=== PATIENT | female | born 1945 | race Caucasian/White ===

== ENCOUNTER 2016-06-04 15:03 | Inpatient (IN) | payer MEDICARE, OTHER ==
[~2016-06-04] VITALS: Ht 157.5 cm; Wt 43.1 kg
[~2016-06-04 15:03] MED LIST: 'PARAFON FORTE500 M1 PO; ADVAIR 250/501 EA INH; ASPIRIN81 M1 PO; ATIVAN0.5 MG PO; ATIVAN1 MG PO; BENADRYL25 MG PO; CIPROFLOXACIN500 MG PO; COLACE100 MG PO; D-1000 185 MG-11 TAB PO; DAYPRO600 M1 PO; DELTASONE10 MG PO; HYDROCODONE BIT1 T11 PO; IMDUR SA30 MG PO; IMDUR30 MG PO; IMDUR60 MG PO; LAMICTAL200 MG PO; LEVAQUIN500 M2 PO; LEVAQUIN750 M1 PO; LEVOFLOXACIN500 MG PO; LIPITOR20 MG PO; LISINOPRIL2.5 MG PO; LOPRESSOR50 M1 PO; LOPRESSOR50 MG PO; MIRALAX17 GM PO; NORCO 325 MG-51 TAB PO; OMEPRAZOLE20 M2 PO; OMEPRAZOLE20 MG PO; OXYGEN NAS; PERCOCET 325 MG1 TA2 PO; PERI-COLACE 501 TAB PO; PROAIR HFA0.09 MG/AC INH; SINGULAIR10 M1 PO; SINGULAIR10 MG PO; TRAMADOL HCL50 MG PO; TUSSIN DM MAX118 ML PO; VENTOLIN H0.09 MG/AC INH; VITAMIN D 90 MG1 TAB PO; VITAMIN D1000 IU PO; XANAX0.25 MG PO; Zofran4 MG PO
[2016-06-04 15:09] VITALS: BP 156/76
[2016-06-04 15:48] LABS: BASO % 0.2 % (0.0-1.0); EOS # 0.1 10*3/uL (0.0-0.4); EOS % 0.8 % (1.0-4.0); HEMATOCRIT 39.1 % (37.0-47.0); IG # 0.1 10*3/uL (0.0-0.1); LYMPH # 1.8 10*3/uL (1.3-4.4); MEAN CORPUSCULAR HGB 33.2 pg (27.0-31.0); MEAN CORPUSCULAR HGB CONC 33.2 g/dl (33.0-37.0); MEAN PLATELET VOLUME 9.5 fl (9.6-12.3); MONO # 0.8 10*3/uL (0.1-1.0); MONO % 6.7 % (3.0-9.0); NEUT # 9.8 10*3/uL (2.3-7.9); NEUT % 77.3 % (47.0-73.0); PLATELET COUNT AUTOMATED 330 10*3/uL (130-400); RED BLOOD COUNT 3.91 10*6/uL (4.10-5.10); RED CELL DISTRI WIDTH 12.8 % (0-14.5); WHITE BLOOD COUNT 12.6 10*3/uL (4.8-10.8)
[2016-06-04 16:00] LABS: PROTHROMBIN TIME 10.8 SECONDS (9.0-12.4)
[2016-06-04 16:05] LABS: ALBUMIN 3.1 gm/dl (3.1-4.5); ALKALINE PHOSPHATASE 97 U/L (45-117); BILIRUBIN, TOTAL 0.5 mg/dl (0.2-1.0); BUN 10 mg/dl (7-24); CARBON DIOXIDE 23 mmol/L (21-32); CHLORIDE 104 mmol/L (98-107); CPK 55 U/L (26-192); EST GLOM FILT AFRICAN AMERICAN > 60 ml/min; GLUCOSE 91 mg/dL (65-99); LDH 218 U/L (84-246); MAGNESIUM 2.1 mg/dL (1.5-2.1); POTASSIUM 4.4 mmol/L (3.5-5.1); SGOT/AST 47 IU/L (3-35); SGPT/ALT 25 U/L (12-78); SODIUM 139 mmol/L (136-145); TOTAL PROTEIN 7.2 gm/dL (6.4-8.2)
[2016-06-04 16:06] LABS: CKMB 0.6 ng/ml (0.5-3.6)
[2016-06-04 16:08] LABS: TROPONIN I < 0.015 ng/ml (<0.045)
[2016-06-04 17:55] VITALS: BP 150/50
[2016-06-04 20:00] VITALS: BP 165/66
[2016-06-05] VITALS: BP 142/51
[2016-06-05 06:29] LABS: HEMATOCRIT 36.3 % (37.0-47.0); IG # 0.1 10*3/uL (0.0-0.1); LYMPH # 0.6 10*3/uL (1.3-4.4); LYMPH % 8.6 % (27.0-41.0); MEAN CELL VOLUME 101.4 fl (81.0-99.0); MEAN CORPUSCULAR HGB 33.5 pg (27.0-31.0); MEAN CORPUSCULAR HGB CONC 33.1 g/dl (33.0-37.0); MEAN PLATELET VOLUME 9.3 fl (9.6-12.3); MONO # 0.2 10*3/uL (0.1-1.0); NEUT # 6.4 10*3/uL (2.3-7.9); NEUT % 87.9 % (47.0-73.0); PLATELET COUNT AUTOMATED 300 10*3/uL (130-400); RED BLOOD COUNT 3.58 10*6/uL (4.10-5.10); RED CELL DISTRI WIDTH 12.7 % (0-14.5); WHITE BLOOD COUNT 7.3 10*3/uL (4.8-10.8)
[2016-06-05 06:55] LABS: CHLORIDE 105 mmol/L (98-107); POTASSIUM 4.1 mmol/L (3.5-5.1); SODIUM 139 mmol/L (136-145)
[2016-06-05 07:27] LABS: ALBUMIN 2.9 gm/dl (3.1-4.5); ALKALINE PHOSPHATASE 92 U/L (45-117); BILIRUBIN, TOTAL 0.4 mg/dl (0.2-1.0); BUN 5 mg/dl (7-24); CARBON DIOXIDE 22 mmol/L (21-32); EST GLOM FILT AFRICAN AMERICAN > 60 ml/min; GLUCOSE 135 mg/dL (65-99); MAGNESIUM 2.2 mg/dL (1.5-2.1); PHOSPHOROUS 3.2 mg/dL (2.5-4.9); SGOT/AST 24 IU/L (3-35); SGPT/ALT 20 U/L (12-78); TOTAL PROTEIN 6.8 gm/dL (6.4-8.2)
[2016-06-05 08:00] VITALS: BP 147/71; BP 162/52
[2016-06-05 12:00] VITALS: BP 154/70
[2016-06-05 16:00] VITALS: BP 146/60
[2016-06-05 20:00] VITALS: BP 162/64
[2016-06-06] VITALS: BP 151/59
[2016-06-06 06:34] LABS: BASO % 0.2 % (0.0-1.0); EOS % 0.3 % (1.0-4.0); HEMATOCRIT 33.4 % (37.0-47.0); IG # 0.1 10*3/uL (0.0-0.1); LYMPH # 2.6 10*3/uL (1.3-4.4); LYMPH % 28.1 % (27.0-41.0); MEAN CELL VOLUME 101.8 fl (81.0-99.0); MEAN CORPUSCULAR HGB 33.5 pg (27.0-31.0); MEAN CORPUSCULAR HGB CONC 32.9 g/dl (33.0-37.0); MEAN PLATELET VOLUME 9.3 fl (9.6-12.3); MONO # 0.7 10*3/uL (0.1-1.0); MONO % 7.4 % (3.0-9.0); NEUT # 5.9 10*3/uL (2.3-7.9); NEUT % 62.8 % (47.0-73.0); PLATELET COUNT AUTOMATED 299 10*3/uL (130-400); RED BLOOD COUNT 3.28 10*6/uL (4.10-5.10); RED CELL DISTRI WIDTH 13.1 % (0-14.5); WHITE BLOOD COUNT 9.4 10*3/uL (4.8-10.8)
[2016-06-06 06:58] LABS: BUN 3 mg/dl (7-24); CARBON DIOXIDE 25 mmol/L (21-32); CHLORIDE 111 mmol/L (98-107); EST GLOM FILT AFRICAN AMERICAN > 60 ml/min; GLUCOSE 87 mg/dL (65-99); SODIUM 144 mmol/L (136-145)
[2016-06-06 08:00] VITALS: BP 182/66
[2016-06-06 12:00] VITALS: BP 130/88; BP 148/60
[2016-06-06 16:00] VITALS: BP 130/66
[2016-06-06 20:00] VITALS: BP 155/68
[2016-06-07] VITALS: BP 141/59
[2016-06-07 08:00] VITALS: BP 154/58
[2016-06-07] MEDS ORDERED: LEVAQUIN500 M2 PO (11:16)
== END 2016-06-07 12:30 | disposition home or self-care (01) | DRG 871 ==
LOC: ED 15:03 → 5E 15:37 → EDHOLD 15:37 → 5E 15:54
PROVIDERS: Internal Medicine; Physician Assistant
DX: A41.9 Sepsis, unspecified organism (principal); E43 Unspecified severe protein-calorie malnutrition; M32.9 Systemic lupus erythematosus, unspecified; Z99.81 Dependence on supplemental oxygen; J18.9 Pneumonia, unspecified organism; J44.1 Chronic obstructive pulmonary disease with (acute) exacerbation; Z66 Do not resuscitate; K59.00 Constipation, unspecified; F17.200 Nicotine dependence, unspecified, uncomplicated; I25.10 Atherosclerotic heart disease of native coronary artery without angina pectoris; G40.909 Epilepsy, unspecified, not intractable, without status epilepticus; M81.0 Age-related osteoporosis without current pathological fracture; K22.719 Barrett's esophagus with dysplasia, unspecified; K44.9 Diaphragmatic hernia without obstruction or gangrene; I10 Essential (primary) hypertension; E55.9 Vitamin D deficiency, unspecified; D64.9 Anemia, unspecified; Z71.6 Tobacco abuse counseling; Z86.73 Personal history of transient ischemic attack (TIA), and cerebral infarction without residual deficits; I25.2 Old myocardial infarction; Z90.49 Acquired absence of other specified parts of digestive tract; Z95.5 Presence of coronary angioplasty implant and graft; Z90.710 Acquired absence of both cervix and uterus; Z88.1 Allergy status to other antibiotic agents; Z88.0 Allergy status to penicillin; Z88.8 Allergy status to other drugs, medicaments and biological substances; Z88.2 Allergy status to sulfonamides; Z91.041 Radiographic dye allergy status; Z79.51 Long term (current) use of inhaled steroids; Z79.82 Long term (current) use of aspirin; Z79.899 Other long term (current) drug therapy; Z68.23 Body mass index [BMI] 23.0-23.9, adult

== ENCOUNTER 2016-06-21 17:01 | Inpatient (IN) | payer MEDICARE, OTHER ==
[~2016-06-21] VITALS: Ht 152.4 cm; Wt 44.7 kg
--- NOTE | ~2016-06-21 | PR ---
[place], [place] PROGRESS NOTE NAME: YOGESH REARDON UNIT #: [id number] ROOM: 408 DOCTOR: MATHEUS DIAZ MD BIRTHDATE: [birth year] DOS: 06/24/2016 PULMONARY PROGRESS NOTE SUBJECTIVE: She has been doing better at this time. The patient stated reduction and improvement in respiratory symptoms since admission, mostly. She does not wish to use the steroids, but using antibiotics as ordered. The coughing has been decreased. Shortness of breath, wheezing was resolved significantly. OBJECTIVE: VITAL SIGNS: Shows a normal temperature, respiratory rate of 18, heart rate of 70, blood pressure 162/50. Intake for the patient is 2030, output 2400 mL. Pulse oxygen saturation on room air 95% saturation. HEENT: Examination shows no acute change. NECK: Supple. CARDIOVASCULAR: S1, S2 audible. LUNGS: The patient was noted without any wheezing or crackles at the present time. Breaths are noted mild to moderately decreased bilaterally. ABDOMEN: Soft, nontender. LABORATORY DATA: Blood culture of patient from 06/21/2016 showed no bacterial growth. IMPRESSION: The patient with progressive resolution of acute exacerbation of chronic obstructive pulmonary disease, acute tracheobronchitis with current present plan and management. PLAN OF TREATMENT: The patient could be discharged home on oral ciprofloxacin as that is the only oral antibiotic she can take and listed allergy to multiple other antibiotics classes, which could be used orally as alternative. She does not wish to use the corticosteroid, was asked to resume her previous home medication and outpatient followup was suggested post-discharge. The discharge planning was discussed with the nursing staff for this patient about that. [place], [place] PROGRESS NOTE NAME: YOGESH REARDON UNIT #: [id number] ROOM: 408 DOCTOR: MATHEUS DIAZ MD BIRTHDATE: [birth year] MATHEUS DHILLON MD CM:PNTRANS [id number] MATHEUS AVILA MD 06/24/16 1023 interface
--- NOTE | ~2016-06-21 | PN ---
[place], [place] PROGRESS NOTE NAME: YOGESH REARDON [facility] #: [id number] UNIT #: [id number] ROOM: 408 DOCTOR: MATHEUS DIAZ MD BIRTHDATE: [birth year] DATE: 06/23/16 SUBJECTIVE: Noted for. She has been still noticing significant coughing, wheezing. The patient has been ordered Solu-Medrol to be used yesterday, but the patient refused to use the Solu-Medrol. She has not been noted any symptoms of chest pain or any abdominal pain. The cough remains moderate to severe and nonproductive. OBJECTIVE: VITAL SIGNS: For the patient which has been recorded showed the temperature of the patient noted as normal. The respiratory rate of the patient recorded as 18. The heart rate of 78. The blood pressure noted 108/63. Pulse oxygen saturation of the patient recorded as 94% on room air. HEENT: Shows head was atraumatic. Eyes nonicterus. NECK: Supple. CARDIOVASCULAR SYSTEM: S1, S2 audible. LUNGS: The patient was noted without any wheezing or crackles at the present time. ABDOMEN: Soft, nontender. LABORATORY DATA: Blood cultures which were taken 16th of this month show no bacterial growth cultures from the Emergency Room. Phosphorus level was noted 2.9 this morning. CBC patient of 06/23/2016, hemoglobin 10.1, hematocrit 31.3, WBC count were normal, platelet count was normal. The patient has a V/Q scan, which was ordered by the primary care attending yesterday the patient was described low probability of pulmonary embolism. IMPRESSION: The patient who has been currently noted with acute exacerbation of chronic obstructive pulmonary disease with acute tracheobronchitis with persistent wheezing and coughing. The patient refused to use the BiPAP claiming that she has a side effect from the BiPAP use. The plan of management. Continue the patient's current therapy, plan of care as in progress. Usual care. Supportive care, other therapy, plan of management as well. Usual treatments. Further treatment changes will be done based on the progression of the illness. At this time, the BiPAP for the patient to be continued. MATHEUS DIAZ MD CM:PNTRANS [phone] MATHEUS AVILA MD 06/25/16 1804 LEATHA FENG.R
--- NOTE | ~2016-06-21 | CON ---
[place], [place] REPORT OF CONSULTATION NAME: YOGESH REARDON [facility] #: [id number] UNIT #: [id number] ROOM: 408 DOCTOR: JACQUIE AVILA MDMATHEUS BIRTHDATE: [birth year] DOS: 06/22/2016 PULMONARY CONSULTATION, EVALUATION AND MANAGEMENT CONSULTATION REQUESTED BY: Hospitalist services. REASON FOR CONSULTATION: Assess the patient for acute exacerbation of COPD. HISTORY OF PRESENT ILLNESS: A 71-year-old white female who has been known to me from the past. The patient has been admitted under the hospitalist services patient for the medical management ongoing acute respiratory complaints. The patient started with having increased symptoms of shortness of breath for patient and the pain which were described across the chest wall from this morning. The pain has been noted gradually worsening. The latter patient described to be sternum area radiating to the back. The patient does complain of some headache as well and nausea. The coughing has been noted as well with sputum expectoration noted thick and purulent. The patient does have some wheezing as well. She denies symptoms of hemoptysis. The patient has been currently admitted to the hospital the patient for further medical management. REVIEW OF SYSTEMS: CONSTITUTIONAL: Fatigue and tiredness described as symptoms of fever or chills. EYES: Denies any burning, redness, or tenderness. EARS, NOSE, THROAT: No sore throat, hoarseness, otalgia, postnasal drainage or epistaxis. CARDIOVASCULAR SYSTEM: Denies anginal pain, edema or pain of the lower extremities. GASTROINTESTINAL: Denies dysphagia, nausea, vomiting, diarrhea, abdominal pain, hematemesis, melena, or hematochezia. SKIN: No lesions or rashes. GENITOURINARY: . CENTRAL NERVOUS SYSTEM: Denies dizziness, headache or diplopia. Remaining systems were reviewed with the patient, they were noted all negative. PAST MEDICAL HISTORY: The patient has been admitted in this hospital previously as well under care of the hospitalist services for this patient. The patient has been treated in this hospital from date of 06/04/2016-06/07/2016 and managed for acute exacerbation of COPD and then discharged home. PAST MEDICAL HISTORY: 1. Centrilobular emphysema. 2. Coronary artery disease. 3. Past GI bleeding. 4. History of hiatal hernia. 5. Past CVA with resolution of hemiparesis, no remaining focal deficit. 6. Essential hypertension. 7. Seizure disorder. 8. Faulkner's esophagus. 9. Anemia of chronic disease. [place], [place] REPORT OF CONSULTATION NAME: YOGESH REARDON UNIT #: [id number] ROOM: [facility] DOCTOR: MATHEUS DIAZ MD BIRTHDATE: [birth year] PAST SURGICAL HISTORY: 1. Cardiac catheterization. 2. Appendectomy. 3. Hysterectomy. 4. Therapeutic bronchoscopy. 5. EGD. SOCIAL HISTORY: The patient lives at home. Denies history of alcohol, illicit drug use, tobacco use for the patient noted. Since teenager a pack of cigarettes per day, stating that she has not been smoking any cigarettes at this time. She worked for several years in [employer] the patient exposure to the dust. FAMILY HISTORY: The patient was noted as both parents have been . They have been known with history of congestive heart failure and aneurysm. DRUG ALLERGIES: SHE HAS BEEN NOTED MANY ALLERGY. THE PATIENT WAS LISTED THAT INCLUDES PENICILLIN, CODEINE, IODINE, PHENYTOIN, TEGRETOL, IBUPROFEN, NAPROXEN, DOXYCYCLINE, BACTRIM, CIPRO, FLAGYL, LODINE, BIAXIN, ZITHROMAX, ARTHROTEC, PREVACID, PHENERGAN, REGLAN, OMNICEF AND AVELOX. MEDICATIONS: The current administered medications were noted use of Lovenox for DVT prophylaxis, DuoNeb for this patient q.6 hours, IV vancomycin, cefepime and morphine. PHYSICAL EXAMINATION: GENERAL: This is a 71-year-old female who has been noted currently awake and alert without any distress. Height was 5 feet, weight of 98 pounds. The patient's BMI of 19.2. VITAL SIGNS: For the patient which has been recorded shows temperature noted at 100 degrees Fahrenheit on admission, currently noted normal temperature, respiratory 15-16, heart rate of 96-88, blood pressure 126/42-107/53. Pulse oxygen saturation on 2 L nasal cannula noted 95% saturation. HEENT: Head was atraumatic. Eyes nonicterus. NECK: Supple. CARDIOVASCULAR SYSTEM: S1, S2 audible. LUNGS: Noted without any wheezing or crackles at the present time. Breaths are noted mildly decreased bilaterally. ABDOMEN: Soft, nontender. Bowel sounds present. EXTREMITIES: Shows no edema, clubbing or cyanosis. CENTRAL NERVOUS SYSTEM: Cranial nerves 2-12 intact. No focal deficits. SKIN: No lesions or rashes. MUSCULOSKELETAL: No acute deformities. LABORATORY DATA: CBC that was done on 06/21/2016 WBC count 12.6, hemoglobin 10.4, hematocrit 32.5, platelet count 269,000. Admission in the Emergency Room lactic acid was 1.0. The CMP of the patient of 06/21/2016 was noted as glucose 108, BUN and creatinine were normal, remaining electrolytes were normal. Arterial blood gas on 5 L nasal cannula for the patient first was venous blood [place], [place] REPORT OF CONSULTATION NAME: YOGESH REARDON UNIT #: [id number] ROOM: [facility] DOCTOR: MATHEUS DIAZ MD BIRTHDATE: [birth year] gas. Second arterial blood gas 4 liters, pH of 7.44, pCO2 of 33, pO2 of 63.1. CBC for the patient repeated again which was rather repeated this morning, WBC count 12.3, hemoglobin 9.3, hematocrit 29.3, platelet count 247,000. CMP for this morning noted normal BUN and creatinine. Chest x-ray 1 view, the patient showed change in hyperinflation, COPD without any acute pulmonary infiltration. IMPRESSION: 1. The patient who has been currently admitted to the hospital noted with acute recurrent exacerbation of chronic obstructive pulmonary disease with acute tracheobronchitis for the patient at the present time. 2. Multiple allergies the patient noted to several different classes of antibiotics. 3. Previous history of nicotine dependence as well. PLAN OF TREATMENT: Ordered sputum for Gram stain and culture. Continue current antibiotics intravenously for the patient as well. Monitor for any adverse reactions for any of these antibiotics. The bronchodilator patient will be given every 4 hours. She will be ordered Solu-Medrol for this patient as well. Sputum for Gram stain and culture has been ordered. Further treatment plan of management patient will be done for the patient based on the progression of the illness. MATHEUS DHILLON MD CM:CONSTR:REPORT OF CONSULTATION 1033 06/23/16 0140 interface
[2016-06-21 17:13] VITALS: BP 158/69
[2016-06-21 17:29] LABS: BASO % 0.2 % (0.0-1.0); EOS % 0.1 % (1.0-4.0); HEMATOCRIT 32.5 % (37.0-47.0); HEMOGLOBIN 10.4 g/dl (12.0-16.0); IG # 0.1 10*3/uL (0.0-0.1); LYMPH # 0.7 10*3/uL (1.3-4.4); LYMPH % 5.7 % (27.0-41.0); MEAN CELL VOLUME 103.2 fl (81.0-99.0); MEAN PLATELET VOLUME 9.8 fl (9.6-12.3); MONO # 0.7 10*3/uL (0.1-1.0); MONO % 5.5 % (3.0-9.0); NEUT # 11.1 10*3/uL (2.3-7.9); NEUT % 87.8 % (47.0-73.0); PLATELET COUNT AUTOMATED 269 10*3/uL (130-400); RED BLOOD COUNT 3.15 10*6/uL (4.10-5.10); RED CELL DISTRI WIDTH 13.3 % (0-14.5); WHITE BLOOD COUNT 12.6 10*3/uL (4.8-10.8)
[2016-06-21 17:38] LABS: PROTHROMBIN TIME 10.1 SECONDS (9.0-12.4)
[2016-06-21 17:44] LABS: ALBUMIN 3.2 gm/dl (3.1-4.5); ALKALINE PHOSPHATASE 81 U/L (45-117); BILIRUBIN, TOTAL 0.4 mg/dl (0.2-1.0); BUN 13 mg/dl (7-24); CARBON DIOXIDE 21 mmol/L (21-32); CHLORIDE 104 mmol/L (98-107); EST GLOM FILT AFRICAN AMERICAN > 60 ml/min; GLUCOSE 108 mg/dL (65-99); POTASSIUM 4.1 mmol/L (3.5-5.1); SGOT/AST 21 IU/L (3-35); SGPT/ALT 10 U/L (12-78); SODIUM 138 mmol/L (136-145)
[2016-06-21 17:49] LABS: ABG BASE EXCESS -0.2 mmol/L (-2.0-2.0); ABG CO2 CONTENT 23.7 mmol/L (23-27); ABG HCO3 22.7 mmol/l (22-26); ARTERIAL BLOOD GAS PH 7.446 (7.35-7.45)
[2016-06-21 17:49] LABS: TROPONIN I < 0.015 ng/ml (<0.045)
[2016-06-21 18:10] LABS: ABG BASE EXCESS -0.4 mmol/L (-2.0-2.0); ABG CO2 CONTENT 23.4 mmol/L (23-27); ABG HCO3 22.4 mmol/l (22-26); ARTERIAL BLOOD GAS PH 7.449 (7.35-7.45); ARTERIAL BLOOD GAS PO2 63.1 mmHg (80-90)
[2016-06-21 19:31] VITALS: BP 131/59
[2016-06-22] VITALS: BP 107/53
[2016-06-22 06:13] LABS: BASO % 0.2 % (0.0-1.0); EOS % 0.3 % (1.0-4.0); HEMATOCRIT 29.3 % (37.0-47.0); HEMOGLOBIN 9.3 g/dl (12.0-16.0); IG # 0.2 10*3/uL (0.0-0.1); LYMPH # 1.5 10*3/uL (1.3-4.4); LYMPH % 12.2 % (27.0-41.0); MEAN CELL VOLUME 104.3 fl (81.0-99.0); MEAN CORPUSCULAR HGB 33.1 pg (27.0-31.0); MEAN CORPUSCULAR HGB CONC 31.7 g/dl (33.0-37.0); MEAN PLATELET VOLUME 10.1 fl (9.6-12.3); MONO # 0.8 10*3/uL (0.1-1.0); MONO % 6.5 % (3.0-9.0); NEUT # 9.8 10*3/uL (2.3-7.9); NEUT % 79.6 % (47.0-73.0); PLATELET COUNT AUTOMATED 247 10*3/uL (130-400); RED BLOOD COUNT 2.81 10*6/uL (4.10-5.10); RED CELL DISTRI WIDTH 13.4 % (0-14.5); WHITE BLOOD COUNT 12.3 10*3/uL (4.8-10.8)
[2016-06-22 06:29] LABS: HEMOGLOBIN A1c 5.3 % (4.8-5.6)
[2016-06-22 06:42] LABS: ALBUMIN 2.5 gm/dl (3.1-4.5); ALKALINE PHOSPHATASE 73 U/L (45-117); BILIRUBIN, TOTAL 0.3 mg/dl (0.2-1.0); BUN 9 mg/dl (7-24); CARBON DIOXIDE 26 mmol/L (21-32); CHLORIDE 109 mmol/L (98-107); CHOLESTEROL 121 mg/dL (<200); EST GLOM FILT AFRICAN AMERICAN > 60 ml/min; GLUCOSE 91 mg/dL (65-99); HDL CHOLESTEROL 53 mg/dl (40-60); LDL CHOLESTEROL 52 mg/dL (9-159); PHOSPHOROUS 2.4 mg/dL (2.5-4.9); POTASSIUM 3.7 mmol/L (3.5-5.1); SGOT/AST 14 IU/L (3-35); SGPT/ALT 9 U/L (12-78); SODIUM 142 mmol/L (136-145); TOTAL PROTEIN 6.1 gm/dL (6.4-8.2); TRIGLYCERIDES 78 mg/dl (<150); VLDL CHOLESTEROL 16 mg/dL (6-40)
[2016-06-22 06:47] LABS: THYROID STIM HORMONE (HS) 0.237 uIU/ml (0.358-4.75)
[2016-06-22 07:29] LABS: FOLIC ACID 17.7 ng/mL (>5.38); VITAMIN D, 25-HYDROXY 25.8 ng/mL (30-100)
[2016-06-22 08:00] VITALS: BP 126/48
[2016-06-22 12:00] VITALS: BP 124/48
[2016-06-22 14:05] LABS: BILIRUBIN NEGATIVE (NEGATIVE); BLOOD NEGATIVE (NEGATIVE); CLARITY CLEAR (CLEAR); COLOR YELLOW (YELLOW); GLUCOSE NEGATIVE (NEGATIVE); KETONE NEGATIVE (NEGATIVE); LEUKO ESTERASE NEGATIVE (NEGATIVE); NITRITE NEGATIVE (NEGATIVE); PH 5.5 (5.0-9.0); PROTEIN NEGATIVE (NEGATIVE); SPECIFIC GRAVITY <= 1.005 (1.005-1.030); UROBILINOGEN 0.2 E.U./dl (0.2-1.0)
[2016-06-22 14:15] LABS: RBC 0-2 rbc/hpf (0-2); URINE REFLEX COMMENT NO (NO); WBC 0-2 wbc/hpf (0-5)
[2016-06-22 16:00] VITALS: BP 135/47
[2016-06-22 17:14] VITALS: BP 164/66
[2016-06-22 20:00] VITALS: BP 147/51
[2016-06-23] VITALS: BP 108/63
[2016-06-23 07:33] LABS: BASO % 0.6 % (0.0-1.0); EOS # 0.2 10*3/uL (0.0-0.4); EOS % 2.4 % (1.0-4.0); HEMATOCRIT 31.3 % (37.0-47.0); HEMOGLOBIN 10.1 g/dl (12.0-16.0); IG # 0.1 10*3/uL (0.0-0.1); LYMPH # 1.6 10*3/uL (1.3-4.4); LYMPH % 22.8 % (27.0-41.0); MEAN CORPUSCULAR HGB 33.6 pg (27.0-31.0); MEAN CORPUSCULAR HGB CONC 32.3 g/dl (33.0-37.0); MEAN PLATELET VOLUME 9.5 fl (9.6-12.3); MONO # 0.6 10*3/uL (0.1-1.0); MONO % 8.5 % (3.0-9.0); NEUT # 4.7 10*3/uL (2.3-7.9); NEUT % 64.9 % (47.0-73.0); PLATELET COUNT AUTOMATED 259 10*3/uL (130-400); RED BLOOD COUNT 3.01 10*6/uL (4.10-5.10); RED CELL DISTRI WIDTH 13.7 % (0-14.5); WHITE BLOOD COUNT 7.2 10*3/uL (4.8-10.8)
[2016-06-23 08:00] VITALS: BP 152/60
[2016-06-23 12:00] VITALS: BP 130/56
[2016-06-23 16:00] VITALS: BP 121/52
[2016-06-23 17:43] VITALS: BP 174/64
[2016-06-23 20:00] VITALS: BP 145/51
[2016-06-24] VITALS: BP 133/55
[2016-06-24 08:00] VITALS: BP 162/50
[2016-06-24] MEDS ORDERED: CIPRO500 MG PO (09:25)
== END 2016-06-24 11:23 | disposition home or self-care (01) | DRG 871 ==
LOC: ED 17:01 → 4E 17:49 → EDHOLD 17:49 → ICCU 18:12 → 4E 19:03
PROVIDERS: Emergency Medicine; Internal Medicine; Internal Medicine Hospice and Palliative Medicine
DX: A41.9 Sepsis, unspecified organism (principal); J96.01 Acute respiratory failure with hypoxia; I26.99 Other pulmonary embolism without acute cor pulmonale; E43 Unspecified severe protein-calorie malnutrition; J15.6 Pneumonia due to other Gram-negative bacteria; M32.9 Systemic lupus erythematosus, unspecified; E83.39 Other disorders of phosphorus metabolism; J44.1 Chronic obstructive pulmonary disease with (acute) exacerbation; J44.0 Chronic obstructive pulmonary disease with (acute) lower respiratory infection; Z68.1 Body mass index [BMI] 19.9 or less, adult; D53.9 Nutritional anemia, unspecified; D63.8 Anemia in other chronic diseases classified elsewhere; I25.10 Atherosclerotic heart disease of native coronary artery without angina pectoris; K44.9 Diaphragmatic hernia without obstruction or gangrene; E55.9 Vitamin D deficiency, unspecified; I10 Essential (primary) hypertension; M81.0 Age-related osteoporosis without current pathological fracture; G40.909 Epilepsy, unspecified, not intractable, without status epilepticus; I25.2 Old myocardial infarction; Z90.710 Acquired absence of both cervix and uterus; Z71.6 Tobacco abuse counseling; Z86.73 Personal history of transient ischemic attack (TIA), and cerebral infarction without residual deficits; Z95.5 Presence of coronary angioplasty implant and graft; Z90.49 Acquired absence of other specified parts of digestive tract; Z82.49 Family history of ischemic heart disease and other diseases of the circulatory system; Z83.3 Family history of diabetes mellitus; Z84.89 Family history of other specified conditions; Z88.1 Allergy status to other antibiotic agents; Z88.0 Allergy status to penicillin; Z88.5 Allergy status to narcotic agent; Z88.6 Allergy status to analgesic agent; Z88.2 Allergy status to sulfonamides; Z88.8 Allergy status to other drugs, medicaments and biological substances; Z79.82 Long term (current) use of aspirin; Z79.899 Other long term (current) drug therapy; Z91.041 Radiographic dye allergy status

== ENCOUNTER → 2016-10-29 | Outpatient (CLI) | payer MEDICARE, OTHER ==
[~2016-10-29] MED LIST changes: +CIPRO500 MG PO
== END | disposition home or self-care (01) ==
LOC: CT 09:56
DX: I65.23 Occlusion and stenosis of bilateral carotid arteries (principal); I25.10 Atherosclerotic heart disease of native coronary artery without angina pectoris; R42 Dizziness and giddiness

== ENCOUNTER 2017-01-22 11:21 | Inpatient (IN) | payer MEDICARE, OTHER ==
[~2017-01-22] VITALS: Ht 157.4 cm; Wt 42.2 kg
--- NOTE | ~2017-01-22 | PR ---
[place], [place] PROGRESS NOTE NAME: YOGESH REARDON UNIT #: [id number] ROOM: 404 DOCTOR: MATHEUS DIAZ MD BIRTHDATE: [birth year] DOS: 01/25/2017 SUBJECTIVE: She has been still noted severe coughing with intermittent wheezing, shortness of breath, unchanged from yesterday. Continue bronchodilators also nebulized inhaled steroids. The patient refused to take the intravenous or oral corticosteroids. She is n.p.o. past midnight. Bronchoscopy was planned for today. OBJECTIVE: VITAL SIGNS: Normal temperature, respiratory rate 20, heart rate 79, blood pressure 150/69 this morning. Pulse oxygen saturation on room air was 95% saturation recorded. HEENT: No acute change. NECK: Supple. CARDIOVASCULAR: S1, S2 audible. LUNGS: Diffuse reduction of breath sounds with moderate expiratory wheezing without any crackles. ABDOMEN: Soft, nontender. EXTREMITIES: Show no edema. LABORATORY DATA: The patient's CBC was noted this morning as normal CBC except unit to see if eosinophils were noted at 5.7%. BMP was noted as normal. BUN and creatinine. IMPRESSION: 1. Ongoing acute exacerbation of chronic obstructive pulmonary disease, acute tracheobronchitis diffuse as use of corticosteroids orally or intravenously. A part of the management of the chronic obstructive pulmonary disease exacerbation. 2. N.p.o. for bronchoscopy for severe nonproductive cough and suspicion of mucus impaction of the major airways. PLAN OF TREATMENT: Continue all other plan outlined previously with the use of the bronchodilators, oxygen supplementation, inhaled steroids. The patient in the form of the nebulizer as Pulmicort Respules. Proceed with the fiberoptic bronchoscopy as planned to be done today. Additional treatment changes to be made based on progression of the illness. Usual care. [place], [place] PROGRESS NOTE NAME: YOGESH REARDON UNIT #: [id number] ROOM: 404 DOCTOR: MATHEUS DIAZ MD BIRTHDATE: [birth year] MATHEUS DHILLON MD CM:PNTRANS [id number] MATHEUS AVILA MD 01/25/17 8572 interface
--- NOTE | ~2017-01-22 | CON ---
[place], [place] REPORT OF CONSULTATION NAME: YOGESH REARDON [facility] #: [id number] UNIT #: [id number] ROOM: 404 DOCTOR: MATHEUS DIAZ MD BIRTHDATE: [birth year] DOS: 01/24/2017 CONSULTATION REQUESTED BY: Hospitalist services. REASON FOR CONSULTATION: Assess the patient for ongoing acute exacerbation of COPD and review to lower use of the corticosteroids. HISTORY OF PRESENT ILLNESS: This is a 71-year-old white female known to me from the past. She has been admitted to the hospitalist service on 01/22/2017. She reported having symptoms of increased shortness of breath associated with coughing for the past few days. She has been seen by the primary care physician as well. The patient was noted with a white cell count, which has been described to be abnormal. She denies any symptoms of chest pain. She was noted symptoms of shortness of breath. Coughing has been noted moderate to severe without any sputum expectoration. The patient stated that she has been feeling sick for the past 3 weeks. She denies symptoms of hemoptysis. The wheezing were described intermittently. She has been started on bronchodilators and antibiotics. The patient was started on the corticosteroid, but the patient refused to use any of the corticosteroids at the present time. REVIEW OF SYSTEMS: CONSTITUTIONAL: Noted symptoms of fatigue and tiredness. Denies symptoms of fever or chills. EAR, NOSE, THROAT SYMPTOMS: No sore throat, hoarseness, otalgia, postnasal drainage or epistaxis. CARDIOVASCULAR: Denies anginal pain, edema or pain in the lower extremities. GASTROINTESTINAL: Dysphagia, nausea, vomiting, diarrhea, abdominal pain, hematemesis, melena, or hematochezia. SKIN: Denies lesions or rashes. MUSCULOSKELETAL: Acute joint pain, redness, or tenderness. CENTRAL NERVOUS SYSTEM: Dizziness, headache, diplopia, syncopal episodes. Remaining systems were reviewed. They were noted all negative. PAST MEDICAL HISTORY: Unknown. 1. Centrilobular emphysema. 2. Coronary artery disease. 3. Previous gastrointestinal bleeding. 4. History of hiatal hernia, Faulkner's esophagus. 5. Past CVA with complete resolution of any neurologic deficit. 6. Essential hypertension. 7. Seizure disorder. 8. Anemia of chronic disease. PAST SURGICAL HISTORY: 1. Cardiac catheterization. 2. Appendectomy. 3. Therapeutic bronchoscopy. 4. EGD. 5. Hysterectomy. [place], [place] REPORT OF CONSULTATION NAME: [facility]ARDON [facility] [id number] UNIT #: [id number] ROOM: [facility] DOCTOR: JACQUIE AVILA MD,MATHEUS BIRTHDATE: [birth year] SOCIAL HISTORY: The patient lives at home. Denies history of alcohol use, illicit drug use as well. Smoking noted since teenager, but stated not smoking cigarettes at this time. 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 FAMILY HISTORY: Both parents have been and known with history of congestive heart failure and aneurysm. DRUG ALLERGIES HISTORY: MULTIPLE ALLERGIES THAT INCLUDE PENICILLIN, CODEINE, IODINE, PHENYTOIN, TEGRETOL, IBUPROFEN, NAPROXEN, DOXYCYCLINE, BACTRIM, CIPRO, FLAGYL, LODINE, BIAXIN, ZITHROMAX, PREVACID, PHENERGAN, REGLAN, OMNICEF, AND AVELOX. MEDICATIONS: Current administered medication noted as use of DuoNeb, vitamin D, aspirin, Lovenox, Protonix, Lamictal, metoprolol tartrate, Singulair, Levaquin, and other medications. PHYSICAL EXAMINATION: GENERAL: This is a 71-year-old female who has been noted currently awake and alert without any acute distress. Height of 5 feet 8 inches, weight of 93 pounds, BMI of 17. VITAL SIGNS: Recorded showed the temperature current noted normal, respiratory rate range between 34-20 this morning, heart rate 61-62, blood pressure 119/57-145/59. HEENT: Shows head was atraumatic. Eyes nonicterus. NECK: Supple. CARDIOVASCULAR: S1, S2 audible. LUNGS: Moderate decreased breath sounds in the lungs were noted bilaterally. ABDOMEN: Soft, flat, nontender, bowel sounds present. CENTRAL NERVOUS SYSTEM: Without any gross focal deficit. Cranial nerves 2-12 intact. MUSCULOSKELETAL: No deformities. SKIN: No lesions or rashes. LABORATORY DATA: CBC on 01/18/2017 was essentially noted as grossly normal. CMP of 01/18/2017 was noted normal as well. CBC that was done in the Emergency Room, 01/22/2017 noted as normal CBC. PT/PTT was noted normal on 01/22/2017. BMP 01/22/2017 was normal as well. Lactic acid 1.3 on 01/22/2017. Troponin normal on 01/22/2017. CBC of this morning essentially remains normal. The BMP was noted normal today. The chest x-ray that was done 1 view on 01/22/2017 noted hyperinflation with changes of COPD without any acute pulmonary infiltration. Previous noted infiltration right lower lobe has been resolved from the chest x-ray comparison of 06/21/2016. IMPRESSION: 1. The patient has been currently admitted to the hospital with acute exacerbation of chronic obstructive pulmonary disease at the present time and refuses use of the corticosteroid for fear of side effects. 2. Previous history of nicotine abuse as well. [place], [place] REPORT OF CONSULTATION NAME: YOGESH REARDON UNIT #: [id number] ROOM: [facility] DOCTOR: JACQUIE AVILA MD,MATHEUS BIRTHDATE: [birth year] 3. Multiple allergy to the medication reported including Levaquin, but the patient has been currently receiving Levaquin without any noted side effects. PLAN OF MANAGEMENT: She was noted with a nonproductive cough and would like to have a therapeutic bronchoscopy done which will be done tomorrow morning, N.p.o. past midnight was ordered for the bronchoscopy to be done tomorrow morning. Discontinue Solu-Medrol since the patient was not using them, in instead start the patient on Pulmicort Respules 0.5 mg b.i.d. if the patient wished to take that, that will be continued as part of the management of COPD. Other supportive therapy, plan of management and care plan. Usual treatment. Additional treatment changes need to be made based on progression of the illness. MATHEUS DHILLON MD CM:CONSTR:REPORT OF CONSULTATION 1434 01/25/17 0120 interface
--- NOTE | ~2017-01-22 | CON ---
[place], [place] REPORT OF CONSULTATION NAME: YOGESH REARDON UNIT #: [id number] ROOM: 404 DOCTOR: ALBERTO WEINER MD BIRTHDATE: [birth year] DOS: 01/22/2017 PALLIATIVE CONSULTATION NOTE HISTORY OF PRESENT ILLNESS: The patient is a 71-year-old female with a past medical history of: 1. Advanced end-stage COPD with continued nicotine smoke dependence. 2. Advanced disability and adult failure to thrive. Patient lives by herself. 3. Chronic respiratory failure and home oxygen dependence. 4. Faulkner's esophagus. 5. Coronary artery disease of the [place] vessels. 6. Anemia of chronic disease. 7. Benign essential hypertension. 8. History of seizure disorder. 9. Nicotine smoke dependence. 10. Vitamin D deficiency. 11. History of lupus. 12. Severe protein calorie malnutrition. 13. History of postmenopausal osteoporosis. 14. 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 15. CVA, ischemic cerebral infarct without any residual weakness. 16. History of hysterectomy, coronary artery disease and stent placement, appendectomy. Patient presently admitted under care of Dr. Darrick Campos and Lorraine Turner for acute exacerbation of severe underlying COPD with acute over chronic respiratory failure and oxygen dependence. Patient is very weak and unable to walk to the bathroom and is using a bedside commode. No chest pains. No fainting episodes. No other GI or urinary symptoms. REVIEW OF SYSTEMS: LUNGS: Increased shortness of breath and wheezing. GASTROINTESTINAL: No nausea, vomiting, diarrhea, constipation. CARDIOVASCULAR: No chest pains or palpitations. SOCIAL HISTORY: Patient lives by herself and drives and has been quite independent so far, but still continues to smoke cigarettes. Denies any drug or alcohol abuse. FAMILY HISTORY: Noncontributory. HOME MEDICATIONS: Patient takes Ventolin inhaler, aspirin, vitamin D, lamotrigine, metoprolol, Singulair, oxygen at home. ALLERGIES: Known allergies to multiple medications including PENICILLINS, , NSAIDS, DOXYCYCLINE, IODINE, PREVACID, METOCLOPRAMIDE, SULFA, TRAMADOL, CODEINE, METRONIDAZOLE, PROMETHAZINE. PHYSICAL EXAMINATION: GENERAL: Alert and oriented x 3, very weak and cachectic. [place], [place] REPORT OF CONSULTATION NAME: REV CARONNadia Cormier UNIT #: [id number] ROOM: 404 DOCTOR: ALBERTO WEINER MD BIRTHDATE: [birth year] HEENT AND NECK: Extraocular movements are intact. Sclerae are anicteric. Oral mucosa is moist and clean. No obvious facial weakness. Neck is supple without any lymphadenopathy. No thyromegaly. No JVD. No carotid arterial bruits. LUNGS: Mild to moderate difficulty breathing and wearing oxygen by nasal cannula. Decreased breath sounds all over. Some mild expiratory wheezing. CARDIOVASCULAR SYSTEM: Heart rate is regular in rate and rhythm. S1 and S2 normally audible. No significant murmur or any other abnormal cardiac sounds. ABDOMEN: Soft, nontender. No obvious organomegaly. Bowel sounds are present. No obvious herniation. EXTREMITIES: Muscle wasting. Without significant cyanosis or edema. Warm to touch. CENTRAL NERVOUS SYSTEM: Alert and oriented x 3. Cranial nerves II-XII are intact. Speech is normal. The patient is able to move all extremities. Normal muscle strength. Deep tendon reflexes are equal on both sides. Plantars were downgoing. LABORATORY DATA: Negative cardiac enzymes so far. Normal serum electrolytes, bilirubin, liver enzymes, normal CBC, normal thyroid functions, vitamin D level low at 25. IMPRESSION AND PLAN: 1. Patient with acute over chronic respiratory failure with home oxygen dependence, advanced disability and patient surprisingly lives by herself and also drives herself. The closest relatives are grandson and granddaughter. Patient wants her granddaughter to be her durable power of oxyacetylene burner and to make health related decisions if she cannot decide for herself. The granddaughter's name is Justyna Jackson. 2. Continued nicotine smoke dependence. Patient still smokes 1 pack of cigarettes a day. Patient encouraged to stop smoking cigarettes and it was explained to her that this will make her breathing worse even faster, which can result in disability and other complications. 4. Coronary artery disease of [place] vessels without chest pain. 5. Vitamin D deficiency, requires vitamin D supplements. 6. Severe protein calorie malnutrition and poor long-term prognosis. Patient with advanced disability, generalized weakness who is surprisingly living by herself and driving and independent. This situation can change very quickly because she continues to smoke cigarettes and she is getting weaker very quickly. Patient recommended to stop smoking cigarettes, take vitamin D supplements, continue all her treatment. Patient already knows who she wants to take medically related decisions for her, which is Justyna Jackson as mentioned above, her granddaughter. Patient says that she would like to stay home and not go to the penitentiary if she gets sicker. Patient was informed that she will need 24-hour care at home if she has to stay home and if her condition gets any worse and if she requires hospice care at home. Patient also wants to maintain a DNR comfort care code status. Patient does not want to be on mechanical ventilation. Good discussion was held with the patient, her grandson and her best friend who was present in the room with the patient and [facility] will stay in touch with the patient and follow her progress. [place], [place] REPORT OF CONSULTATION NAME: YOGESH REARDON UNIT #: [id number] ROOM: [facility] DOCTOR: HUSAM MCALLISTER,ALBERTO Cormier BIRTHDATE: [birth year] Patient may require group home placement for rehab to see if she gets well enough to be able to go home to her previous independent living situation. In case patient is unable to go home or if she is unable to live independently, a good option would be to consult hospice in that case. For now, patient remains at the hospital and is getting treated for acute exacerbation of severe underlying chronic obstructive pulmonary disease and acute over chronic respiratory failure. Thank you, Lorraine Turner and Dr. Darrick Campos, for asking me to see the patient. ALBERTO WEINER MD CM:CONSTR:REPORT OF CONSULTATION 18 01/23/17 0109 interface
--- NOTE | ~2017-01-22 | PR ---
[place], [place] PROGRESS NOTE NAME: YOGESH REARDON UNIT #: [id number] ROOM: 404 DOCTOR: MATHEUS DIAZ MD BIRTHDATE: [birth year] DOS: 01/26/2017 SUBJECTIVE: She has been noted comfortable at this time without any distress. The bronchoscopy completed yesterday successfully. The cough has been noted significantly decreased. The patient after the bronchoscopy not completely resolved. The wheezing and shortness of breath has been slowly resolving. She was continued on previous treatment, bronchodilators and inhaled corticosteroids as the patient form of nebulizer. OBJECTIVE: VITAL SIGNS: Normal temperature, respiratory rate 20, heart rate 70, blood pressure 146/53. The pulse oxygen saturation on room air was 96% saturation. HEENT: No acute change. NECK: Supple. CARDIOVASCULAR: S1, S2 audible. LUNGS: Noted without any crackles. There was no wheezing. Breaths are noted decreased in the lungs bilaterally. Mild expiratory wheezing were noted, which has been improved significantly from yesterday. ABDOMEN: Soft, nontender. LABORATORY DATA: Gram stain of the bronchial washing, moderate white blood cell, few epithelial cells, few gram-positive cocci in pairs and clusters. The culture results for the patient, preliminary at this time were pending. IMPRESSION: 1. Severe acute tracheobronchitis, status post bronchoscopy, removal of the mucus impaction of the major airways as well. 2. Acute exacerbation of chronic obstructive pulmonary disease, refuses to use the intravenous or oral corticosteroids. PLAN OF TREATMENT: No changes in the therapy for the patient at this time. Continue the patient's current therapy, plan of management and care, usual treatment, all other supportive plan of management. [place], [place] PROGRESS NOTE NAME: YOGESH REARDON UNIT #: [id number] ROOM: 404 DOCTOR: MATHEUS DIAZ MD BIRTHDATE: [birth year] MATHEUS DHILLON MD CM:PNTRANS [id number] MATHEUS AVILA MD 01/27/1716 interface
--- NOTE | ~2017-01-22 | PR ---
[place], [place] PROGRESS NOTE [id number] UNIT #: [id number] ROOM: 404 DOCTOR: JACQUELYN DAIGLE DO BIRTHDATE: [birth year] DOS: 01/26/2017 SUBJECTIVE: The patient was evaluated. She was awake and oriented. She denied any chest pain, nausea, vomiting, or diarrhea. She did state that she felt tired and otherwise, she was doing well. OBJECTIVE: VITAL SIGNS: Temperature 98, pulse 80, respiratory rate 18, blood pressure 141/51, bedside pulse oximetry 92% on room air. GENERAL: The patient is awake, alert and oriented, in no acute distress. CARDIAC: S1, S2 heard. RESPIRATORY: Some scattered wheezes with diminished breath sounds. ABDOMEN: Soft, nontender, nondistended. EXTREMITIES: Some difficulty with ambulation but no lower extremity edema or erythema. NEUROLOGIC: No focal neural deficits. SKIN: No tears, lesions. PSYCH: Good historian but poor compliance. ASSESSMENT AND PLAN: Acute exacerbation of chronic obstructive pulmonary disease, continues to improve. The patient can be discharged today and she will need to follow up with Dr. Ordoñez in the office later on today to further discuss treatment options. Otherwise, continue with current treatments. JACQUELYN DAIGLE DO MATHEUS ORDOÑEZ MD CM:PNTRANS [id number] JACQUELYN DAIGLE DO 01/27/17 1222 interface
--- NOTE | ~2017-01-22 | PR ---
[place], [place] PROGRESS NOTE [id number] #: [id number] ROOM: 404 DOCTOR: JACQUIE AVILA MD,MATHEUS BIRTHDATE: [birth year] DOS: 01/27/2017 PULMONARY FOLLOWUP SUBJECTIVE: She was independently seen and examined with [id number] encounter. History was confirmed and physical examination performed. Assessment management personally completed. The note done by the registered medical transcriptionist was approved as well. She has been showing continued reduction of the respiratory symptom with improvement in coughing, wheezing and shortness of breath after the bronchoscopy in 2 days. PHYSICAL EXAMINATION: VITAL SIGNS: Reviewed and noted as normal. Pulse oxygen saturation was noted as normal. Room air as 92%-97% saturation. LUNGS: Noted clear of any wheezing. There were no crackles. ABDOMEN: Soft, nontender. LABORATORY DATA: Culture of bronchial washings reported normal amanda. IMPRESSION: The patient has been showing improvement in the resolution of the acute respiratory symptom for at this time, and could be discharged home on oral antibiotic as Levaquin, which has been tolerated. She has been reported allergy to AVELOX, but the patient denied that allergy as she has been inquired about the allergies listing. Followup office visit to be scheduled for the patient in March 2017 or earlier in case of any new symptoms. MATHEUS DHILLON MD CM:PNTRANS [id number] MATHEUS AVILA MD 01/28/17 0351 interface
--- NOTE | ~2017-01-22 | PROC NOTE ---
[place], [place] PROCEDURE NOTE NAME: YOGESH REARDON UNIT #: [id number] ROOM: 404 DOCTOR: JACQUIE AVILA MD,MATHEUS BIRTHDATE: [birth year] DOS: 01/25/2017 PREOPERATIVE DIAGNOSES: Severe cough with inability to collect sputum with wheezing and shortness of breath. POSTOPERATIVE DIAGNOSES: Evidence of severe mucus impaction, ongoing tracheobronchitis finding. No endobronchial obstructive lesions. COMPLICATIONS: None. PROCEDURE DESCRIPTION: Informed consent obtained for the patient. She was brought to the OR and placed in supine position. Conscious sedation administered by the Anesthesia Department. After achieving proper sedation, airway introduced into the mouth. Bronchoscope advanced into the airway into laryngeal area. Epiglottis and vocal cords were seen. Vocal cords were moving symmetrically with the movements bilaterally. Bronchoscope advanced to the vocal cords into the tracheal lumen noted moderate amount thick mucus secretion with small purulent secretions suctioned out to the ángel level. The right upper, right lower, right middle, left upper, lingular lobe bronchi were all examined. Moderate amount of thick plugs of the mucus present in endobronchial tree subsegments bilaterally which was suctioned out clear with normal saline wash and sent for culture. Procedure well tolerated by the patient without any complications. Postoperative findings will be discussed with the patient once the patient recovered the effects of acute sedation. No major change in the treatment will be needed. MATHEUS DHILLON MD CM:PROCNOTE:PROCEDURE NOTE [id number] MATHEUS AVILA MD
[2017-01-22 12:07] LABS: BASO % 0.5 % (0.0-1.0); EOS # 0.2 10*3/uL (0.0-0.4); HEMATOCRIT 40.5 % (37.0-47.0); HEMOGLOBIN 13.1 g/dl (12.0-16.0); LYMPH # 1.3 10*3/uL (1.3-4.4); LYMPH % 21.9 % (27.0-41.0); MEAN CELL VOLUME 102.8 fl (81.0-99.0); MEAN CORPUSCULAR HGB 33.2 pg (27.0-31.0); MEAN CORPUSCULAR HGB CONC 32.3 g/dl (33.0-37.0); MEAN PLATELET VOLUME 9.5 fl (9.6-12.3); MONO # 0.7 10*3/uL (0.1-1.0); MONO % 11.6 % (3.0-9.0); NEUT # 3.7 10*3/uL (2.3-7.9); NEUT % 61.5 % (47.0-73.0); PLATELET COUNT AUTOMATED 223 10*3/uL (130-400); RED BLOOD COUNT 3.94 10*6/uL (4.10-5.10); RED CELL DISTRI WIDTH 12.9 % (0-14.5)
[2017-01-22 12:13] VITALS: BP 164/90
--- NOTE | 2017-01-22 12:14 | NUR ---
PT REPORTS CHEST PRESSURE WQITH MILD SOB ESPECIALLY WITH EXERTION FOR SEVERAL DAYS. HX COPD. DIMINISHED BREATH SOUNDS WITHOUT EDEMA OR COUGH. DR BRUSH INSTRUCTS ME TO DOCUMENT A RESPIRATORY RATE OF 32.
[2017-01-22 12:16] LABS: ACT PARTIAL THROMBO TIME 27.3 SECONDS (20.8-31.5); INTERNATIONAL NORM RATIO 0.9 (2.0-3.5)
[2017-01-22 12:23] LABS: ALBUMIN 3.6 gm/dl (3.1-4.5); ALKALINE PHOSPHATASE 96 U/L (45-117); BUN 6 mg/dl (7-24); CHLORIDE 104 mmol/L (98-107); CREATININE 0.91 mg/dL (0.55-1.02); SGOT/AST 33 IU/L (3-35); SGPT/ALT 16 U/L (12-78); SODIUM 136 mmol/L (136-145); TOTAL PROTEIN 7.9 gm/dL (6.4-8.2)
[2017-01-22 12:26] LABS: TROPONIN I < 0.015 ng/ml (<0.045)
--- NOTE | 2017-01-22 12:45 | NUR ---
A 71, admitted to , under the services of AINSLEY Back DO with a diagnosis of COPD EXACERBATION. Chief complaint is SOB WITH CHEST HEAVINESS. Patient arrived via bed from ER. Monitor applied. Initial assessment completed. Vital signs taken and recorded. AINSLEY BACK DO notified of admission to the unit. Orders received. See assessment for past medical history, medications and allergies. Patient and/or family oriented to unit. [facility] visitation policy reviewed. Clothing/patient valuable form completed. ASSESSMENT COMPLETE. SKIN INTACT WITH NO WOUNDS. PT REFUSES FLU AND PNEUMONIA VACCINATIONS. WILL VERIFY MEDICATIONS WITH [facility]. RAFFI CHAVIRA
[2017-01-22 13:00] VITALS: BP 155/52
--- NOTE | 2017-01-22 13:30 | NUR ---
PT HOME MEDICATIONS VERIFIED WITH [facility]. VIRGINIE RAY NOTIFIED
--- NOTE | 2017-01-22 14:34 | NUR ---
SW RECEIVED PALLIATIVE CARE REFERRAL. SW NOTIFIED [facility] OF REFERRAL.
--- NOTE | 2017-01-22 14:52 | NUR ---
CALLED AND LEFT MESSAGE WITH JOHN MAURO REGARDING PALLIATIVE CARE CONSULT. WAITING AVAYA ENGINEER BACK
--- NOTE | 2017-01-22 15:05 | NUR ---
RECEIVED A CALL FROM JOHN WITH [facility] REGARDING PT CONSULT. [employer] IS FAXING INFORMATION NOW.
[2017-01-22 16:00] VITALS: BP 127/51
[2017-01-22 20:00] VITALS: BP 111/80
[2017-01-23] VITALS: BP 110/78
[2017-01-23 06:16] LABS: BASO % 0.6 % (0.0-1.0); EOS # 0.2 10*3/uL (0.0-0.4); EOS % 4.6 % (1.0-4.0); HEMATOCRIT 38.3 % (37.0-47.0); HEMOGLOBIN 12.5 g/dl (12.0-16.0); LYMPH # 1.7 10*3/uL (1.3-4.4); LYMPH % 35.2 % (27.0-41.0); MEAN CELL VOLUME 101.3 fl (81.0-99.0); MEAN CORPUSCULAR HGB 33.1 pg (27.0-31.0); MEAN CORPUSCULAR HGB CONC 32.6 g/dl (33.0-37.0); MEAN PLATELET VOLUME 9.9 fl (9.6-12.3); MONO # 0.6 10*3/uL (0.1-1.0); NEUT # 2.2 10*3/uL (2.3-7.9); NEUT % 47.2 % (47.0-73.0); PLATELET COUNT AUTOMATED 208 10*3/uL (130-400); RED BLOOD COUNT 3.78 10*6/uL (4.10-5.10); RED CELL DISTRI WIDTH 12.9 % (0-14.5); WHITE BLOOD COUNT 4.7 10*3/uL (4.8-10.8)
[2017-01-23 06:57] LABS: ALBUMIN 3.3 gm/dl (3.1-4.5); BUN 10 mg/dl (7-24); CHLORIDE 105 mmol/L (98-107); CREATININE 0.82 mg/dL (0.55-1.02); POTASSIUM 4.2 mmol/L (3.5-5.1); SGOT/AST 31 IU/L (3-35); SGPT/ALT 15 U/L (12-78); SODIUM 138 mmol/L (136-145)
[2017-01-23 06:58] LABS: ALKALINE PHOSPHATASE 92 U/L (45-117); TOTAL PROTEIN 6.9 gm/dL (6.4-8.2)
[2017-01-23 08:00] VITALS: BP 145/59
--- NOTE | 2017-01-23 09:37 | NUR ---
PT MEDICATED WITH TYLENOL FOR COMPLAINTS OF PAIN IN CHEST FROM COUGH 07/15. WILL MONITOR.
--- NOTE | 2017-01-23 11:14 | NUR ---
NOTIFIED THAT PATIENT IS REFUSING SOLUMEDROL.
--- NOTE | 2017-01-23 11:25 | NUR ---
NOTIFIED OF CONSULT.
[2017-01-23 11:42] VITALS: BP 139/53
--- NOTE | 2017-01-23 15:42 | NUR ---
TYLENOL 650MG PO GIVEN FOR RIB PAIN RATING AN 8/10.
[2017-01-23 16:00] VITALS: BP 113/69
--- NOTE | 2017-01-23 16:45 | NUR ---
PATIENT STATES THAT TYLENOL HAS LESSEN THE PAIN.
[2017-01-23 20:00] VITALS: BP 133/87
--- NOTE | 2017-01-23 22:18 | NUR ---
TYLENOL GIVEN OF RPAIBN, WILL CONINUE TO MONITOR.
[2017-01-24] VITALS: BP 137/52
[2017-01-24 07:15] LABS: BASO % 0.4 % (0.0-1.0); EOS # 0.2 10*3/uL (0.0-0.4); EOS % 4.3 % (1.0-4.0); HEMATOCRIT 39.4 % (37.0-47.0); LYMPH # 1.8 10*3/uL (1.3-4.4); LYMPH % 34.8 % (27.0-41.0); MEAN CELL VOLUME 101.5 fl (81.0-99.0); MEAN CORPUSCULAR HGB 33.5 pg (27.0-31.0); MEAN PLATELET VOLUME 9.2 fl (9.6-12.3); MONO # 0.6 10*3/uL (0.1-1.0); MONO % 10.7 % (3.0-9.0); NEUT # 2.5 10*3/uL (2.3-7.9); NEUT % 49.2 % (47.0-73.0); PLATELET COUNT AUTOMATED 203 10*3/uL (130-400); RED BLOOD COUNT 3.88 10*6/uL (4.10-5.10); RED CELL DISTRI WIDTH 12.8 % (0-14.5); WHITE BLOOD COUNT 5.2 10*3/uL (4.8-10.8)
[2017-01-24 07:40] LABS: BUN 13 mg/dl (7-24); CHLORIDE 104 mmol/L (98-107); CREATININE 0.91 mg/dL (0.55-1.02); POTASSIUM 4.4 mmol/L (3.5-5.1); SODIUM 136 mmol/L (136-145)
[2017-01-24 08:00] VITALS: BP 146/59
--- NOTE | 2017-01-24 10:44 | NUR ---
SPOKE WITH PT ON TAKING SOLUMEDROL ALONG SIDE ATIVAN. PT UNDERSTANDS IMPORTANCE OF MEDICINE. IS THINKING ABOUT TAKING MED.
[2017-01-24 12:00] VITALS: BP 119/58
--- NOTE | 2017-01-24 13:51 | NUR ---
MEDICATED WITH PRN PO TYLENOL FOR BACK AND RIB CAGE ACHING.
--- NOTE | 2017-01-24 14:19 | NUR ---
PAGING NURSE SOLAR PANEL TECHNICIAN FOR PALLIATIVE CARE CONSULT.
--- NOTE | 2017-01-24 14:32 | NUR ---
[facility]. PER STAFF, NURSE WILL CONTACT [facility] TOMORROW RE: THE CONSULT.
--- NOTE | 2017-01-24 15:45 | NUR ---
BACK AND POSTERIOR RIB CAGE PAIN RELEIVED BY PO TYLENOL, BUT THIS MED WAS INEFFECTIVE FOR ANTERIOR CHEST HEAVINESS PAIN, PER PATIENT.
[2017-01-24 16:00] VITALS: BP 149/79
--- NOTE | 2017-01-24 18:02 | NUR ---
MEDICATED WITH PRN PO TYLENOL FOR ANTERIOR CHEST PAIN.
[2017-01-24 20:00] VITALS: BP 130/73
--- NOTE | 2017-01-24 22:59 | NUR ---
Medicated with Tylenol po prn for back and posterior rib cage pain. Will monitor effectiveness. Call light within reach.
[2017-01-25] VITALS (8 sets, daily range): BP systolic 129–186; BP diastolic 50–100
--- NOTE | 2017-01-25 | NUR ---
Patient resting quietly in bed with eyes closed. Tylenol effective. Will continue to monitor. Call light within reach.
--- NOTE | 2017-01-25 00:51 | NUR ---
24 HR chart check completed.
[2017-01-25 07:27] LABS: BASO % 0.5 % (0.0-1.0); EOS # 0.4 10*3/uL (0.0-0.4); EOS % 5.7 % (1.0-4.0); HEMOGLOBIN 12.7 g/dl (12.0-16.0); LYMPH # 2.2 10*3/uL (1.3-4.4); LYMPH % 35.4 % (27.0-41.0); MEAN CORPUSCULAR HGB 32.9 pg (27.0-31.0); MEAN CORPUSCULAR HGB CONC 32.6 g/dl (33.0-37.0); MEAN PLATELET VOLUME 9.6 fl (9.6-12.3); MONO # 0.6 10*3/uL (0.1-1.0); MONO % 8.8 % (3.0-9.0); NEUT # 3.1 10*3/uL (2.3-7.9); PLATELET COUNT AUTOMATED 218 10*3/uL (130-400); RED BLOOD COUNT 3.86 10*6/uL (4.10-5.10); RED CELL DISTRI WIDTH 12.8 % (0-14.5); WHITE BLOOD COUNT 6.3 10*3/uL (4.8-10.8)
[2017-01-25 07:43] LABS: BUN 13 mg/dl (7-24); CHLORIDE 106 mmol/L (98-107); CREATININE 0.89 mg/dL (0.55-1.02); POTASSIUM 4.6 mmol/L (3.5-5.1); SODIUM 138 mmol/L (136-145)
--- NOTE | 2017-01-25 08:00 | NUR ---
PT DOWN FOR BRONCH AT THIS TIME.
--- NOTE | 2017-01-25 09:00 | NUR ---
case management attempted to visit with patient, patient out of room for procedure, will see at a later time
--- NOTE | 2017-01-25 11:20 | NUR ---
PT RETURNED FROM BRONCHOSCOPY AT THIS TIME, PT HAS PERSISTENT HACKING COUGH, LUNG SOUNDS DIMINISHED, PT STATES BREATHING DOES FEEL IMPROVED, O2 SAT 96% ON 3L NC, PT DOES APPEAR TO BE ANXIOUS AT THIS TIME. SCHEDULED ATIVAN GIVEN AT THIS TIME. FAMILY AT BEDSIDE.
--- NOTE | 2017-01-25 12:30 | NUR ---
PT RESTING IN BED, NO DISTRESS NOTED. HACKING COUGH HAS SUBSIDED. PT DENIES COMPLAINTS.
--- NOTE | 2017-01-25 14:04 | NUR ---
SW SPOKE WITH FAMILY AND LET THEM KNOW THAT A [facility] RE[facility]ERR[facility] M[facility]. DTR AGREEED WITH REFERRAL.
[2017-01-26] VITALS: BP 109/76
[2017-01-26 08:00] VITALS: BP 146/53
--- NOTE | 2017-01-26 09:00 | NUR ---
Certified Hyperbaric Technician in to talk to patient. Patient states lives at home with alone. There are few steps in the home. Physician: emerald klein Pharmacy: [facility] health services: none Patient's level of ADLs: INDEPENDENT Patient has working utilities: all working DME: home oxygen at , nebulizer from [facility] Follow-up physician's appointment after d/c: will be made by hospitalist nurse director upon discharge Does patient want to access PORTAL?: no Discharge plan discussed with patient, patient lives at home alone,states she gets around fine, patient states she will be going back home when able and denies any home needs. OCTAVIO MILLER
[2017-01-26 12:00] VITALS: BP 146/53
[2017-01-26 16:00] VITALS: BP 161/65
[2017-01-26 16:09] LABS: ACID FAST SMEAR Negative (.); ACID FAST SPEC PROCESSING Concentration (.)
[2017-01-26 20:00] VITALS: BP 129/47
[2017-01-27] VITALS: BP 143/61
[2017-01-27 08:00] VITALS: BP 141/51
--- NOTE | 2017-01-27 09:00 | NUR ---
case management visits with patient, again discussed with her a discharge plan including VNA, she was receptive to VNA and chose OV, development planner will contact [facility] for when patient is medically stable for discharge
[2017-01-27] MEDS ORDERED: LEVAQUIN500 M2 PO (10:50)
--- NOTE | 2017-01-27 11:02 | NUR ---
PT REQUESTING ATIVAN FOR AT HOME, STATES IT HAS REALLY HELPED WITH HER ANXIETY AND RELIEVE SOME OF HER DISTRESS WHEN BREATHING, UPDATED DR MARTELL.
[2017-01-27] MEDS ORDERED: LORAZEPAM2 MG/1 M1 PO (11:11)
[2017-01-27] MEDS ORDERED: ATIVAN0.5 MG PO (11:13)
--- NOTE | 2017-01-27 11:16 | NUR ---
Patient being discharged to home with home health and requested referral be made to [facility]. Faxed new order and clincals to [facility] for referral.
--- NOTE | 2017-01-27 12:42 | NUR ---
Discharge instructions reviewed with patient/family. Patient receptive and verbalizes understanding. Follow-up care arranged. Written instructions given to patient/family. IV site removed, pt transported to [facility] via wheelchair, accompanied by staff. REYNA SHAH
== END 2017-01-27 12:42 | disposition home or self-care (01) | DRG 189 ==
LOC: ED 11:21 → 4E 11:56 → EDHOLD 11:56 → 4E 12:32
PROVIDERS: Emergency Medicine; Hospitalist; Internal Medicine Critical Care Medicine; Registered Nurse; ADMIT Internal Medicine
PROC: 0BC18ZZ Extirpation of Matter from Trachea, Via Natural or Artificial Opening Endoscopic (ICD-10-PCS; principal; 2017-01-25)
PROC: 0BC78ZZ Extirpation of Matter from Left Main Bronchus, Via Natural or Artificial Opening Endoscopic (ICD-10-PCS; principal; 2017-01-25)
PROC: 0BC68ZZ Extirpation of Matter from Right Lower Lobe Bronchus, Via Natural or Artificial Opening Endoscopic (ICD-10-PCS; principal; 2017-01-25)
PROC: 0BC38ZZ Extirpation of Matter from Right Main Bronchus, Via Natural or Artificial Opening Endoscopic (ICD-10-PCS; principal; 2017-01-25)
PROC: 0BC58ZZ Extirpation of Matter from Right Middle Lobe Bronchus, Via Natural or Artificial Opening Endoscopic (ICD-10-PCS; principal; 2017-01-25)
PROC: 0BC88ZZ Extirpation of Matter from Left Upper Lobe Bronchus, Via Natural or Artificial Opening Endoscopic (ICD-10-PCS; principal; 2017-01-25)
PROC: 0BC48ZZ Extirpation of Matter from Right Upper Lobe Bronchus, Via Natural or Artificial Opening Endoscopic (ICD-10-PCS; principal; 2017-01-25)
PROC: 0BC98ZZ Extirpation of Matter from Lingula Bronchus, Via Natural or Artificial Opening Endoscopic (ICD-10-PCS; principal; 2017-01-25)
PROC: 0BCB8ZZ Extirpation of Matter from Left Lower Lobe Bronchus, Via Natural or Artificial Opening Endoscopic (ICD-10-PCS; principal; 2017-01-25)
DX: J96.20 Acute and chronic respiratory failure, unspecified whether with hypoxia or hypercapnia (principal); E43 Unspecified severe protein-calorie malnutrition; Z99.81 Dependence on supplemental oxygen; T17.890A Other foreign object in other parts of respiratory tract causing asphyxiation, initial encounter; J44.0 Chronic obstructive pulmonary disease with (acute) lower respiratory infection; J44.1 Chronic obstructive pulmonary disease with (acute) exacerbation; Z68.1 Body mass index [BMI] 19.9 or less, adult; G40.909 Epilepsy, unspecified, not intractable, without status epilepticus; F17.210 Nicotine dependence, cigarettes, uncomplicated; M81.0 Age-related osteoporosis without current pathological fracture; J20.9 Acute bronchitis, unspecified; I10 Essential (primary) hypertension; D64.9 Anemia, unspecified; E55.9 Vitamin D deficiency, unspecified; K22.70 Barrett's esophagus without dysplasia; R07.89 Other chest pain; I25.10 Atherosclerotic heart disease of native coronary artery without angina pectoris; Z66 Do not resuscitate; Z51.5 Encounter for palliative care; Z53.29 Procedure and treatment not carried out because of patient's decision for other reasons; Z71.6 Tobacco abuse counseling; Z88.0 Allergy status to penicillin; Z88.1 Allergy status to other antibiotic agents; Z88.6 Allergy status to analgesic agent; Z88.8 Allergy status to other drugs, medicaments and biological substances; Z91.041 Radiographic dye allergy status; I25.2 Old myocardial infarction; Z87.01 Personal history of pneumonia (recurrent); Z98.61 Coronary angioplasty status; Z90.710 Acquired absence of both cervix and uterus; Z83.3 Family history of diabetes mellitus; Z82.49 Family history of ischemic heart disease and other diseases of the circulatory system; Z86.73 Personal history of transient ischemic attack (TIA), and cerebral infarction without residual deficits; Z79.82 Long term (current) use of aspirin; Z79.899 Other long term (current) drug therapy; X58.XXXA Exposure to other specified factors, initial encounter; Y93.89 Activity, other specified; Y92.89 Other specified places as the place of occurrence of the external cause

== ENCOUNTER → 2017-05-12 | Outpatient (CLI) | payer OTHER ==
[~2017-05-12] MED LIST changes: +LORAZEPAM2 MG/1 M1 PO
== END | disposition home or self-care (01) ==
LOC: MAMMO 07:31
DX: Z12.31 Encounter for screening mammogram for malignant neoplasm of breast (principal)

== ENCOUNTER → 2017-06-03 | Outpatient (CLI) | payer MEDICARE, OTHER ==
[~2017-06-03] MED LIST changes: +IMDUR SA60 M1 PO
--- NOTE | ~2017-06-03 | ST ---
[place], [place] EXERCISE STRESS TEST REPORT [id number] #: [id number] ROOM: DOCTOR: SELINA MCALLISTER [facility],URIEL BIRTHDATE: [birth year] DOS: 06/03/2017 LEXISCAN STRESS TEST The patient received Lexiscan 0.4 mg over 10 seconds. Heart rate is 96 and ischemic changes on the inferior lateral leads. No complication noted. Isotope was injected. Myocardial perfusion scan to follow. URIEL MARKS MD CM:STRESS:EXERCISE STRESS TEST REPORT [id number] URIEL MARKS MD [facility]
== END | disposition home or self-care (01) ==
LOC: CARD 01:57
DX: I20.8 Other forms of angina pectoris (principal); E11.9 Type 2 diabetes mellitus without complications; I50.9 Heart failure, unspecified

== ENCOUNTER → 2017-06-25 | Outpatient (CLI) | payer MEDICARE, OTHER | END | disposition home or self-care (01) | LOC: US 08:06 | DX: R10.30 Lower abdominal pain, unspecified (principal); M54.9 Dorsalgia, unspecified ==

== ENCOUNTER 2017-08-17 10:43 | Emergency (ER) | payer MEDICARE, OTHER ==
[~2017-08-17] VITALS: Ht 152.4 cm; Wt 42.2 kg
[2017-08-17 10:46] VITALS: BP 164/47
== END 2017-08-17 13:09 | disposition home or self-care (01) ==
LOC: ED 10:43
DX: S56.193A Other injury of flexor muscle, fascia and tendon of right middle finger at forearm level, initial encounter (principal); Z90.49 Acquired absence of other specified parts of digestive tract; Z90.710 Acquired absence of both cervix and uterus; Z98.890 Other specified postprocedural states; Z95.5 Presence of coronary angioplasty implant and graft; Z79.82 Long term (current) use of aspirin; Z79.899 Other long term (current) drug therapy; Z88.0 Allergy status to penicillin; Z88.5 Allergy status to narcotic agent; Z88.8 Allergy status to other drugs, medicaments and biological substances; Z88.1 Allergy status to other antibiotic agents; W22.8XXA Striking against or struck by other objects, initial encounter; Y93.89 Activity, other specified; Y92.89 Other specified places as the place of occurrence of the external cause; Y99.9 Unspecified external cause status

== ENCOUNTER → 2017-08-19 | Outpatient (CLI) | payer MEDICARE, OTHER | LOC: RAD 11:15 | DX: Z13.820 Encounter for screening for osteoporosis (principal); Z78.0 Asymptomatic menopausal state ==

== ENCOUNTER 2017-12-11 17:46 | Emergency (ER) | payer MEDICARE, OTHER ==
[~2017-12-11] VITALS: Ht 167.6 cm; Wt 54.4 kg
--- NOTE | ~2017-12-11 | EKG ---
[place], [place] ELECTROCARDIOGRAM REPORT NAME: YOGESH TAPIA UNIT #: [id number] ROOM: DOCTOR: EPIPHANY DRAFT REPORT BIRTHDATE: [birth year] [facility] Test Date: 2017-12-11 Test Time: 18:03:11 Pat Name: YOGESH TAPIA Department: Room: Gender: F Lab Scientist: Dona Tapia : 1945 Requested By: FREDDY MESSINA Order Number: [id number] Reading MD: Steve Myles MD Measurements Intervals [place] Rate: 86 P: 64 NM: 165 QRS: 24 QRSD: 110 T: 73 QT: 381 QTc: 456 Interpretive Statements Sinus rhythm Probable left atrial enlargement Electronically Signed On 12-12-2017 9:17:12 PDT by Steve Myles MD CM:EKGRPT:ELECTROCARDIOGRAM REPORT 1803 [id number] FREDDY MESSINA EPIPHANY DRAFT REPORT FREDDY MESSINA
[2017-12-11 18:20] LABS: BASO # 0.1 10*3/uL (0.0-0.1); BASO % 0.5 % (0.0-1.0); EOS # 0.1 10*3/uL (0.0-0.4); EOS % 1.1 % (1.0-4.0); HEMATOCRIT 37.8 % (37.0-47.0); HEMOGLOBIN 12.7 g/dl (12.0-16.0); LYMPH # 2.6 10*3/uL (1.3-4.4); LYMPH % 22.2 % (27.0-41.0); MEAN CORPUSCULAR HGB 33.6 pg (27.0-31.0); MEAN CORPUSCULAR HGB CONC 33.6 g/dl (33.0-37.0); MEAN PLATELET VOLUME 9.5 fl (9.6-12.3); MONO # 1.1 10*3/uL (0.1-1.0); MONO % 9.3 % (3.0-9.0); NEUT # 7.9 10*3/uL (2.3-7.9); NEUT % 66.1 % (47.0-73.0); PLATELET COUNT AUTOMATED 306 10*3/uL (130-400); RED BLOOD COUNT 3.78 10*6/uL (4.10-5.10); RED CELL DISTRI WIDTH 12.7 % (0-14.5); WHITE BLOOD COUNT 11.9 10*3/uL (4.8-10.8)
[2017-12-11 18:36] LABS: ALBUMIN 3.7 gm/dl (3.1-4.5); ALKALINE PHOSPHATASE 95 U/L (45-117); BUN 20 mg/dl (7-24); CHLORIDE 99 mmol/L (98-107); CREATININE 1.39 mg/dL (0.55-1.02); POTASSIUM 4.2 mmol/L (3.5-5.1); SGOT/AST 36 IU/L (3-35); SGPT/ALT 17 U/L (12-78); SODIUM 134 mmol/L (136-145); TOTAL PROTEIN 8.3 gm/dL (6.4-8.2)
[2017-12-11 18:43] LABS: TROPONIN I < 0.015 ng/ml (<0.045)
[2017-12-11 19:37] VITALS: BP 156/58
== END 2017-12-11 19:33 | disposition home or self-care (01) ==
LOC: ED 17:46
PROVIDERS: Nurse Practitioner Family
DX: J44.1 Chronic obstructive pulmonary disease with (acute) exacerbation (principal); I10 Essential (primary) hypertension; I25.2 Old myocardial infarction; I25.10 Atherosclerotic heart disease of native coronary artery without angina pectoris; K22.70 Barrett's esophagus without dysplasia; F17.200 Nicotine dependence, unspecified, uncomplicated; Z90.710 Acquired absence of both cervix and uterus; Z90.49 Acquired absence of other specified parts of digestive tract

== ENCOUNTER → 2018-08-25 | Outpatient (CLI) | payer MEDICARE, OTHER ==
[~2018-08-25] MED LIST changes: +BRILINTA90 M1 PO; +NIFEDIPINE ER30 M1 PO; +PRAVASTATIN SOD40 MG PO
== END | disposition home or self-care (01) ==
LOC: CT 08-23 09:00
DX: J44.1 Chronic obstructive pulmonary disease with (acute) exacerbation (principal); F17.200 Nicotine dependence, unspecified, uncomplicated; R91.8 Other nonspecific abnormal finding of lung field

== ENCOUNTER 2019-01-02 16:41 | Inpatient (IN) | payer MEDICARE, OTHER ==
[~2019-01-02] VITALS: Ht 154.9 cm; Wt 38.7 kg
--- NOTE | ~2019-01-02 | CON ---
[place], [place] REPORT OF CONSULTATION NAME: YOGESH REARDON UNIT #: [id number] ROOM: 402 DOCTOR: URIEL MARKS MD, FACC BIRTHDATE: [birth year] DOS: 01/03/2019 CARDIOLOGY CONSULTATION HISTORY OF PRESENT ILLNESS: I know the patient for years and done some interventions and cath. The patient has Stress and cath done some time back and primarily it appears to be respiratory insufficiency. The patient continued to smoke and some of the atypical chest pain could be pulmonary and muscular and the patient has protein-calorie malnutrition may be also consideration and advised the patient for years and she has to try to get out from the tobacco, still smokes about a pack a day. The patient is a 73-year-old female with history of severe respiratory insufficiency, coronary artery disease, and coronary interventions. The patient also has history of back problem, Faulkner's esophagus, chronic anemia, chronic obstructive severe pulmonary decompensation, hiatal hernia, history of CVA in the past, but recovered mostly, no residual effect; ____ and hypertensive cardiovascular disease, lupus, history of myocardial infarction, tobacco abuse and the patient also has a history of appendectomy. SOCIAL HISTORY: No alcohol or illicit drugs, except tobacco abuse. MEDICATIONS: THE PATIENT HAS MULTIPLE ALLERGIES MENTIONED INCLUDING PENICILLIN, ZITHROMAX AND ALLERGIES ARE LISTED. PHYSICAL EXAMINATION: GENERAL: She is not in a moderately dyspneic and tachypneic. VITAL SIGNS: Vital signs are stable. Blood pressure 137/55, heart rate is 70, afebrile. LUNGS: Diminished breath sounds at bases. Bilateral rhonchi. HEART: S1, S2 regular. ABDOMEN: Soft. SKIN: Color is good, not diaphoretic. EXTREMITIES: No cyanosis. RECTAL AND GENITAL: Deferred. IMPRESSION AND PLAN: No acute changes in the electrocardiogram. Initial troponin is unremarkable. Consideration may be given for adenosine Cardiolite in a few days and hospitalist managing the pulmonary status. Continue with current management. Thank you very much for asking me to see the patient. I will follow the patient with you. [place], [place] REPORT OF CONSULTATION NAME: YOGESH REARDON UNIT #: [id number] ROOM: 402 DOCTOR: URIEL MARKS MD, FACC BIRTHDATE: [birth year] URIEL MARKS MD CM:CONSTR:REPORT OF CONSULTATION 0751 01/04/19 1354 interface
--- NOTE | ~2019-01-02 | EKG ---
[place], [place] ELECTROCARDIOGRAM REPORT NAME: YOGESH REARDON UNIT #: [id number] ROOM: 402 DOCTOR: BOB DRAFT REPORT BIRTHDATE: [birth year] [facility] Test Date: 2019-01-03 Test Time: 06:55:30 Pat Name: YOGESH REARDON Department: Room: 402 2 Gender: F Reservations Specialist: : 1945 Requested By: WILBERT MARTELL Order Number: [id number] Reading MD: Feroz Negron MD Measurements Intervals [place] Rate: 85 P: 64 VA: 152 QRS: 35 QRSD: 107 T: 60 QT: 388 QTc: 462 Interpretive Statements Sinus rhythm Probable left ventricular hypertrophy Compared to ECG 10/14/2018 20:32:37 Early repolarization no longer present Electronically Signed On 01-03-2019 5:18:34 PDT by Feroz Negron MD CM:EKGRPT:ELECTROCARDIOGRAM REPORT 0655 0518 WILBERT ADAMES DRAFT REPORT WILBERT MARTELL DO
--- NOTE | ~2019-01-02 | CON ---
[place], [place] REPORT OF CONSULTATION NAME: [facility]ARDON [facility]: [id number] UNIT #: [id number] ROOM: 402 DOCTOR: PHD TIFFANIE MILDRED BIRTHDATE: [birth year] DOS: 01/05/2019 HISTORY OF PRESENT ILLNESS: The patient is a 73-year-old female referred for a Behavioral Health consult due to hallucinations. At the present time, the patient is on the 4th floor at [facility]. The patient presented to the hospital with UTI and sepsis. She was sent from her PCP's office. The patient lives alone and has 3 children, one of whom . She denied alcohol and illegal drug use. She smokes half a pack of cigarettes per day. At one point during her hospitalization, she had been seeing rabbits, which was actually part of medical equipment in her room. She states she knew they were not real. Her confusion has been improving throughout her stay at the hospital. PAST MEDICAL HISTORY: Anemia, back pain, Faulkner's esophagus, coronary artery disease, chronic anemia, COPD, hiatal hernia, history of CVA without residual deficits, hypertension, lupus, macrocytic anemia, myocardial infarction, osteoporosis, seizure disorder, severe protein-calorie malnutrition, tobacco abuse, vitamin D deficiency. MEDICATIONS: Tessalon Perles, Singulair, Procardia XL, Imdur SA, aspirin enteric coated, Nitrostat, Brilinta, Lamictal, Lopressor, Ventolin, Cipro. PHYSICAL EXAMINATION: The patient was sitting comfortably in bed, in mild distress. She had been coughing after breathing treatment. The patient was oriented to person, place, and time. Mood was irritable with some depression related to grief for her son's . Affect was restricted in range. She firmly denied suicidal and homicidal ideation, plan, and intent. Speech and language were within normal limits conversationally. Thought process was goal directed. There is no evidence of hallucinations or delusions. The patient denied psychiatric history. She states that she has been very sick lately and she believes that being sick along with taking Ativan led her to hallucinate. She denied a need or desire for mental health treatment. She is adamant about returning home stating she has, "taking care of herself for the past 18 years and plans on continuing to do so." DIAGNOSIS: Unspecified delirium. RECOMMENDATIONS: The patient denies hallucinations. Her cognition appears to have improved since the night she experienced the hallucinations, which may have been caused by her being sick and taking Ativan. She does not appear to be a risk to herself or others and does not appear to require inpatient psychiatric treatment at this time. She may benefit from following up as an outpatient to work through grief for her son's . Thank you very much for this consult. [place], [place] REPORT OF CONSULTATION NAME: YOGESH REARDON UNIT #: [id number] ROOM: [facility] DOCTOR: TIFFANIE, PHD MILDRED BIRTHDATE: [birth year] Karen Navarrete, PhD CM:CONSTR:REPORT OF CONSULTATION 1437 01/06/19 1255 interface
--- NOTE | ~2019-01-02 | EKG ---
[place], [place] ELECTROCARDIOGRAM REPORT NAME: YOGESH REARDON UNIT #: [id number] ROOM: 402 DOCTOR: BOB DRAFT REPORT BIRTHDATE: [birth year] [facility] Test Date: 2019-01-03 Test Time: 04:08:16 Pat Name: YOGESH REARDON Department: Room: 402 2 Gender: F Inspector Automatic Typewriter: : 1945 Requested By: WILBERT MARTELL Order Number: [id number] Reading MD: Feroz Negron MD Measurements Intervals [place] Rate: 82 P: 69 [place]: 156 QRS: 48 QRSD: 110 T: 63 QT: 397 QTc: 464 Interpretive Statements Sinus rhythm Minimal ST elevation, anterolateral leads Compared to ECG 10/14/2018 20:32:37 ST (T wave) deviation now present Left ventricular hypertrophy no longer present Early repolarization no longer present Electronically Signed On 01-03-2019 5:18:20 PDT by Feroz Negron MD CM:EKGRPT:ELECTROCARDIOGRAM REPORT [id number] WILBERT ADAMES DRAFT REPORT WILBERT MARTELL DO
--- NOTE | ~2019-01-02 | EKG ---
[place], [place] ELECTROCARDIOGRAM REPORT NAME: YOGESH REARDON UNIT #: [id number] ROOM: 402 DOCTOR: BOB DRAFT REPORT BIRTHDATE: [birth year] [facility] Test Date: 2019-01-03 Test Time: 01:12:15 Pat Name: YOGESH REARDON Department: Room: 402 2 Gender: F Manager Architecture: : 1945 Requested By: WILBERT MARTELL Order Number: [id number] Reading MD: Feroz Negron MD Measurements Intervals [place] Rate: 79 P: 75 [place]: 164 QRS: 55 QRSD: 107 T: 64 QT: 420 QTc: 482 Interpretive Statements Sinus rhythm Compared to ECG 10/14/2018 20:32:37 Left ventricular hypertrophy no longer present Early repolarization no longer present Electronically Signed On 01-03-2019 5:18:03 PDT by Feroz Negron MD CM:EKGRPT:ELECTROCARDIOGRAM REPORT [id number] WILBERT ADAMES DRAFT REPORT WILBERT MARTELL DO
--- NOTE | ~2019-01-02 | ST ---
[place], [place] EXERCISE STRESS TEST REPORT NAME: YOGESH REARDON UNIT #: [id number] ROOM: 402 DOCTOR: SELINA MCALLISTER [facility] BIRTHDATE: [birth year] DOS: 01/05/2019 LEXISCAN CARDIOLITE The patient received Lexiscan 0.4 mg over 10 seconds and isotope was injected. Heart rate is 121. No conclusive EKG changes for myocardial ischemia. The baseline changes in the inferior leads suspicious for myocardial ischemia. No complication noted. Myocardial perfusion scan to follow. URIEL MARKS MD CM:STRESS:EXERCISE STRESS TEST REPORT [id number] URIEL MARKS MD [facility]
[~2019-01-02 16:41] MED LIST changes: +MACROBID100 M1 PO
[2019-01-02 16:59] VITALS: BP 157/55
--- NOTE | 2019-01-02 16:59 | NUR ---
Time: 1658 A 73 year old FEMALE admitted to under services of GERA GALINDO DO. Pt. arrived via wheel chair from ADMITTING Chief complaint: WEAKNESS, UTI, SEPSIS, MULTIPLE COMPLAINTS. ELLIOT CLARKE
[2019-01-02 20:00] VITALS: BP 148/50
[2019-01-02 20:04] LABS: BASO % 0.2 % (0.0-1.0); EOS # 0.1 10*3/uL (0.0-0.4); EOS % 0.5 % (1.0-4.0); HEMATOCRIT 33.2 % (37.0-47.0); HEMOGLOBIN 10.5 g/dl (12.0-16.0); LYMPH # 1.4 10*3/uL (1.3-4.4); LYMPH % 10.7 % (27.0-41.0); MEAN CELL VOLUME 102.2 fl (81.0-99.0); MEAN CORPUSCULAR HGB 32.3 pg (27.0-31.0); MEAN CORPUSCULAR HGB CONC 31.6 g/dl (33.0-37.0); MEAN PLATELET VOLUME 10.2 fl (9.6-12.3); MONO # 1.2 10*3/uL (0.1-1.0); MONO % 8.5 % (3.0-9.0); NEUT # 10.7 10*3/uL (2.3-7.9); NEUT % 79.6 % (47.0-73.0); PLATELET COUNT AUTOMATED 223 10*3/uL (130-400); RED BLOOD COUNT 3.25 10*6/uL (4.10-5.10); WHITE BLOOD COUNT 13.5 10*3/uL (4.8-10.8)
[2019-01-02 20:18] LABS: ALBUMIN 3.2 gm/dl (3.1-4.5); ALKALINE PHOSPHATASE 89 U/L (45-117); BUN 19 mg/dl (7-24); CHLORIDE 105 mmol/L (98-107); CREATININE 1.04 mg/dL (0.55-1.02); POTASSIUM 3.9 mmol/L (3.5-5.1); SGOT/AST 28 IU/L (3-35); SGPT/ALT 17 U/L (12-78); SODIUM 134 mmol/L (136-145); TOTAL PROTEIN 7.5 gm/dL (6.4-8.2)
--- NOTE | 2019-01-02 22:41 | NUR ---
PATIENT REFUSING MERREM UNTIL SHE CAN TALK TO A DOCTOR. RATIONALE FOR MERREM EXPLAINED. PATIENT STILL REFUSING UNTIL SHE CAN TALK TO THE DOCTOR. I WILL NOTIFY DR. MARTELL.
--- NOTE | 2019-01-02 22:42 | NUR ---
DR MARTELL NOTIFIED THAT THE PATIENT IS REQUESTING TO TALK TO HIM BEFORE RECIEVING ANY ANTIBIOTICS. DR MARTELL STATED HE WOULD BE UP TO TALK TO THE PATIENT.
--- NOTE | 2019-01-02 23:03 | NUR ---
DR MARTELL CAME UP AND TALKED TO THE PATIENT. SHE AGREED TO RECIEVING MERSVETA.
[2019-01-03] VITALS: BP 133/53
--- NOTE | 2019-01-03 00:02 | NUR ---
TYLENOL GIVEN PER PATIENT REQUEST FOR COMPLAINTS OF PAIN RATED 7/10 IN HER BACK. WILL ASSESS EFFECTIVENESS.
--- NOTE | 2019-01-03 00:25 | NUR ---
24 HR chart check completed.
--- NOTE | 2019-01-03 00:47 | NUR ---
PATIENT COMPLAINED OF LEFT ARM AND LEG PAIN RADIATING DOWN BOTH. PATIENT STATED SHE HAD A HEART ATTACK 3-4 WEEKS AGO. SHE STATED HER CHEST FELT "A LITTLE TIGHT" BUT DENIES ANY CHEST PAIN. NOTIFIED DR MARTELL. HE STATED HE WILL ORDER AN EKG FOR THE PATIENT. WILL CONTINUE TO MONITOR.
--- NOTE | 2019-01-03 01:37 | NUR ---
PATIENT RESTING IN BED. NO SIGNS OR SYMPTOMS OF DISTRESS OR DISCOMFORT AT THIS TIME. CALL LIGHT WITHIN REACH. WILL CONTINUE TO MONITOR.
--- NOTE | 2019-01-03 01:59 | NUR ---
PT STATES PAIN DECREASED FROM 9/10 TO 7/10 FOLLOWING ONE DOSE SL NITRO.
[2019-01-03 03:15] VITALS: BP 133/48
--- NOTE | 2019-01-03 03:15 | NUR ---
NOTIFIED OF PATIENT'S C/O CHEST PAIN NOW RATED 9/10. PATIENT STATES EARLIER NITRO GIVEN AT 0155 TOOK HER PAIN DOWN TO A 2/10. NEW ORDER FOR NITRO PRN TO FOLLOW PER .
--- NOTE | 2019-01-03 03:15 | NUR ---
0.5 MG ATIVAN GIVEN. WILL ASSESS EFFECTIVENESS.
--- NOTE | 2019-01-03 03:29 | NUR ---
1ST DOSE OF NITRO GIVEN. PATIENT STATED PAIN WENT FROM A 9/10 TO A 6/10. PATIENT REFUSED NEXT DOSE OF NITRO BECAUSE SHE STATED THE FIRST DOSE HAD HELPED HER. WILL CONTINUE TO MONITOR THE PATIENT.
--- NOTE | 2019-01-03 04:20 | NUR ---
PRN MEDICATIONS EFFECTIVE. PATIENT SLEEPING. NO SIGNS OR SYMPTOMS OF DISTRESS OR DISCOMFORT NOTED. WILL CONTINUE TO MONITOR.
[2019-01-03 04:22] LABS: BASO % 0.2 % (0.0-1.0); EOS % 0.2 % (1.0-4.0); HEMATOCRIT 31.4 % (37.0-47.0); HEMOGLOBIN 9.8 g/dl (12.0-16.0); LYMPH # 1.2 10*3/uL (1.3-4.4); LYMPH % 8.9 % (27.0-41.0); MEAN CELL VOLUME 103.3 fl (81.0-99.0); MEAN CORPUSCULAR HGB 32.2 pg (27.0-31.0); MEAN CORPUSCULAR HGB CONC 31.2 g/dl (33.0-37.0); MEAN PLATELET VOLUME 10.1 fl (9.6-12.3); MONO # 1.2 10*3/uL (0.1-1.0); MONO % 8.9 % (3.0-9.0); NEUT # 10.9 10*3/uL (2.3-7.9); NEUT % 81.1 % (47.0-73.0); PLATELET COUNT AUTOMATED 209 10*3/uL (130-400); RED BLOOD COUNT 3.04 10*6/uL (4.10-5.10); RED CELL DISTRI WIDTH 13.9 % (0-14.5); WHITE BLOOD COUNT 13.4 10*3/uL (4.8-10.8)
[2019-01-03 04:36] LABS: BUN 16 mg/dl (7-24); CHLORIDE 106 mmol/L (98-107); CREATININE 0.93 mg/dL (0.55-1.02); PHOSPHOROUS 3.5 mg/dL (2.5-4.9); POTASSIUM 3.9 mmol/L (3.5-5.1); SODIUM 136 mmol/L (136-145)
--- NOTE | 2019-01-03 06:28 | NUR ---
CALLED DOCTOR MARKS'S ANSWERING SERVICE. THEY CONNECTED ME TO DR MARKS'S CELL PHONE AND THERE WAS NO ANSWER. REQUESTED TO HAVE DR MARKS CALL ME BACK.
--- NOTE | 2019-01-03 06:43 | NUR ---
NOTIFIED DR MARKS OF CONSULT. HE STATED HE WOULD BE IN TO SEE THE PATIENT.
[2019-01-03 08:00] VITALS: BP 152/50
[2019-01-03 08:05] LABS: BILIRUBIN NEGATIVE (NEGATIVE); BLOOD TRACE-INTACT (NEGATIVE); CLARITY CLEAR (CLEAR); COLOR YELLOW (YELLOW); GLUCOSE NEGATIVE (NEGATIVE); KETONE 2+ (NEGATIVE); LEUKO ESTERASE NEGATIVE (NEGATIVE); NITRITE NEGATIVE (NEGATIVE); UROBILINOGEN 0.2 E.U./dl (0.2-1.0)
--- NOTE | 2019-01-03 08:32 | NUR ---
DR. MYERS AND DR. MARKS HAVE BOTH ROUNDED.
--- NOTE | 2019-01-03 09:00 | NUR ---
Inter Com Installer in to talk to patient. Patient states lives at home with alone. There are no steps in the home. Physician: emerald klein Pharmacy: [facility] services: none Patient's level of ADLs: MINIMAL ASSIST Patient has working utilities: all working DME: [employer] Follow-up physician's appointment after d/c: will be made by hospitalist nurse director upon discharge Does patient want to access PORTAL?: no Discharge plan case management attempted to discuss a discharge plan with patient, patient is very confused at this time, patient's friend was visiting, but is not her POA or family, friend stated that patient lives at home alone with family checking on her occasionally, will ask store planner to contact patient's family regarding patient's home situation and also if there is a POA, case management iwll follow. OCTAVIO MILLER
--- NOTE | 2019-01-03 10:51 | NUR ---
Patient confused, friend in room. Attempted to contact patient son, cell phone is turned off, unable to leave voicemail. Attempted to contact patient grand daughter who lives with patient, Melony, and was unable to make contact. I did leave a voicemail and asked her to return call.
--- NOTE | 2019-01-03 11:00 | NUR ---
PHYSICAL THERAPY Physical therapy evaluation attempted however Pt reports she is too tired to participate. May be willing to participate in the afternoon. Will attempt later. thank you Vernell French, PT, DPT
--- NOTE | 2019-01-03 11:05 | NUR ---
MEDICATED WITH TYLENOL PER ORDER AND REQUEST. PATIENT IS VERY ANXIOUS AND ODD HAVING VISUAL HALLUCINATIONS. PATIENT ALSO ARGUES ABOUT HER MEDS AND PICKED AND CHOSE WHICH ONES SHE WANTED. TRIED TO EDUCATE BUT HER AND FAMILY ARGUED.
--- NOTE | 2019-01-03 11:14 | NUR ---
Patients grand daughter returned call. She stated that she is the HPOA and believes the papers are inside the patient house. She said the patient is not normally confused, she is always on top of getting things in order. Melony and patients son Keo stop or contact her daily. Melony stated patient would never agree to go to snf placement, she wants to wait a day or so to see if patients UTI/Confusing clears up before making those decisons.
[2019-01-03 12:00] VITALS: BP 151/56
--- NOTE | 2019-01-03 13:20 | NUR ---
PHYSICAL THERAPY Respiratory therapy in Pt room, will attempt at a later time. Thank you Vernell French, PT, DPT
[2019-01-03 16:00] VITALS: BP 122/43
[2019-01-03 20:00] VITALS: BP 132/48
--- NOTE | 2019-01-03 20:29 | NUR ---
PT UP TO BEDSIDE COMMODE AT THIS TIME. SON AT BEDSIDE.
--- NOTE | 2019-01-03 21:25 | NUR ---
NOTIFIED OF PATIENT'S REQUEST FOR ATIVAN. PT STATES SHE TAKES 0.25 MG OF ATIVAN AT HOME NEEDED. PER MED CLAIMS HISTORY, 0.5 MG OF ATIVAN WAS LAST FILLED IN MAY OF 2018. TO REVIEW CHART & PLACE ORDERS NECESSARY.
[2019-01-04] VITALS (7 sets, daily range): BP systolic 111–155; BP diastolic 49–98
--- NOTE | 2019-01-04 00:49 | NUR ---
PATIENT CALLED RN INTO ROOM. PT HAVING A COUGHING SPELL AND STATES "I CAN'T BREATHE." RN ENCOURAGED PT TO CALM DOWN AND DEEP BREATHE/FOCUS ON BREATHING. VITALS TAKEN AT THIS TIME. POX 97% ON ROOM AIR. O2 APPLIED AT 2L NC FOR COMFORT. RESPIRATORY CALLED TO ADMINISTER BREATHING TREATMENT. RN STAYED WITH PT TO CONTINUE TO GUIDE PT'S BREATHING. PT APPEARED MUCH CALMER & BREATHING RELAXED. SUDDENLY PT STOOD UP, PUT BACKSIDE OF HAND TO FOREHEAD, AND LEANED BACK INTO THIS RN. RN CAUGHT PT IMMEDIATELY AND ASSISTED HER BACK INTO STANDING POSITION, WHERE PT WAS ABLE TO STAND ON HER OWN. PT ASSISTED TO SIT ON SIDE OF BED & RN AGAIN GUIDED PT'S BREATHING AND PT CALMED DOWN. RESPIRATORY ENTERED ROOM AND BREATHING TX ADMINISTERED. NOTIFIED OF RESPIRATORY STATUS & PT BEING VERY WORKED UP/ANXIOUS. NEW ORDER RECEIVED FOR ATIVAN PO X1 DOSE. PO ATIVAN ADMINISTERED PER ORDER AT 0049. WILL CONTINUE TO MONITOR. CALL LIGHT IN REACH. PAs AT BEDSIDE TO CLEAN PATIENT/BED UP PT SPILLED WATER.
--- NOTE | 2019-01-04 01:23 | NUR ---
EARLIER INTERVENTIONS EFFECTIVE. PT IS BREATHING MUCH MORE EASILY, BUT STILL HAS OCCASIONAL SHORT COUGHING FIT. PATIENT REQUESTING SOMETHING TO HELP HER COUGH. NOTIFIED. WILL MONITOR.
--- NOTE | 2019-01-04 01:54 | NUR ---
PO TESSALON PERLES ADMINISTERED AT THIS TIME PER ORDER FOR C/O COUGH. PT IS NOW MUCH MORE RELAXED. ASSISTED TO REPOSITION IN BED FOR COMFORT. PT TOOK O2 OFF HERSELF. WILL MONITOR. CALL LIGHT IN REACH.
--- NOTE | 2019-01-04 03:32 | NUR ---
PT MEDICATED WITH PO TYLENOL FOR C/O PAIN OF R RIB PAIN RATED 10/10. WILL MONITOR EFFECTIVENESS. CALL LIGHT IN REACH. EARLIER JUNI THOMPSON EFFECTIVE PER PT.
--- NOTE | 2019-01-04 04:10 | NUR ---
EARLIER MEDICATION APPEARS EFFECTIVE. PT RESTING IN BED WITH EYES CLOSED. RESPIRATIONS EASY. NO S/S OF DISTRESS NOTED. WILL MONITOR. CALL LIGHT IN REACH.
--- NOTE | 2019-01-04 09:00 | NUR ---
case management visits with patient, she is more alert this am, discussed with her a discharge plan including a short term skilled nurisng due to physical therpay recommendations. patient became agitated and stated she would not go to a penitentiary, attempted to calm her and explain to her the process of a longterm. patient stated she would not go to a skilled. also discussed with her VNA and she was agreeable to this, given choice of companies she chose [facility], will send a referral to [facility] for when patient is medically stable for discharge
--- NOTE | 2019-01-04 09:15 | NUR ---
Occupational Therapy evaluation completed on 4 with full eval to follow. Precautions include fall risk; bed alarm, significant loss of balance w/ walking stick,needs assist for ADL set up, standing,functional mobility d/t high fall risk, moderate complexity level 78249 via chart review, testing and evaluation. Recommend SNF if goals not met, home w/home health OT,PT,SN upon d/c. Thank you. La Baeza OTR/l
--- NOTE | 2019-01-04 09:16 | NUR ---
PHYSICAL THERAPY Physical therapy evaluation completed. 4E. Full details to follow. moderate complexity determined after evaluation/chart [place], [id number]. PT to work on transfers, gait, balance, strength and safety. Recommending SNF at discharge due to Pt being very unsteady and unsafe. Pt also reports having mold in her home. Thank you Vernell French, PT, DPT
--- NOTE | 2019-01-04 13:22 | NUR ---
COMPLAIN OF PAIN,TYLENOL GIVEN.REQUESTED "COUGH PILL" TESSALON GIVEN. SEE EMAR
--- NOTE | 2019-01-04 22:00 | NUR ---
PATIENT MEDICATED WITH TYLENOL FOR TEMP OF 100.2. PT REQUESTING COUGH MEDICATION. TESSALON PERLE ADMINISTERED PRESCRIBED. WILL MONITOR FOR EFFECTIVENESS.
--- NOTE | 2019-01-04 23:00 | NUR ---
PATIENT STATES THAT TESSALON PERLE WAS EFFECTIVE FOR COUGH. WILL MONITOR.
[2019-01-05] VITALS: BP 130/54
--- NOTE | 2019-01-05 04:29 | NUR ---
PATIENT LAYING IN BED WATCHING TV. RESPIRATIONS EASY AND UNLABORED ON 2LNC. HAS NO COMPLAINTS AT THIS TIME. BED LOCKED IN LOWEST POSITION, CALL LIGHT WITHIN REACH. WILL MONITOR.
[2019-01-05 05:35] LABS: BASO % 0.4 % (0.0-1.0); EOS # 0.2 10*3/uL (0.0-0.4); EOS % 2.9 % (1.0-4.0); HEMATOCRIT 31.2 % (37.0-47.0); HEMOGLOBIN 9.7 g/dl (12.0-16.0); LYMPH # 1.6 10*3/uL (1.3-4.4); LYMPH % 20.9 % (27.0-41.0); MEAN CELL VOLUME 101.3 fl (81.0-99.0); MEAN CORPUSCULAR HGB 31.5 pg (27.0-31.0); MEAN CORPUSCULAR HGB CONC 31.1 g/dl (33.0-37.0); MEAN PLATELET VOLUME 9.8 fl (9.6-12.3); MONO # 0.8 10*3/uL (0.1-1.0); MONO % 10.1 % (3.0-9.0); NEUT % 64.5 % (47.0-73.0); PLATELET COUNT AUTOMATED 230 10*3/uL (130-400); RED BLOOD COUNT 3.08 10*6/uL (4.10-5.10); RED CELL DISTRI WIDTH 14.1 % (0-14.5); WHITE BLOOD COUNT 7.7 10*3/uL (4.8-10.8)
[2019-01-05 06:06] LABS: ALBUMIN 2.7 gm/dl (3.1-4.5); ALKALINE PHOSPHATASE 86 U/L (45-117); BUN 5 mg/dl (7-24); CHLORIDE 109 mmol/L (98-107); CREATININE 0.68 mg/dL (0.55-1.02); SGOT/AST 29 IU/L (3-35); SGPT/ALT 15 U/L (12-78); SODIUM 141 mmol/L (136-145); TOTAL PROTEIN 6.7 gm/dL (6.4-8.2)
--- NOTE | 2019-01-05 06:24 | NUR ---
PATIENT UP EATING CEREAL AT THIS TIME. NPO AFTER SMALL EARLY BREAKFAST.
[2019-01-05 08:00] VITALS: BP 127/41
--- NOTE | 2019-01-05 08:56 | NUR ---
PT. AMBULATED FOR HOME O2. PULSE OX ON R/A AT REST 95%. PT. AMBULATED IN THE SCOTT ON R/A, PULSE OX WAS 93%. PT. APPEARS TO BE WEAK, BUT O2 SAT MAINTAINED. PT RETURNED TO ROOM, O2 IS AVAILABLE AT BEDSIDE 1 LITER. RN NOTIFIED. B/P 127/41. HEART RATE 78 AND 90 WITH AMBULATION.
--- NOTE | 2019-01-05 09:00 | NUR ---
case management visits with patient, she is ambulating in low with physical therapy. gait steady, she states she will return home when medically stable and is agreeable to [facility], case management will notify [facility] when patient is medically stable for discharge
--- NOTE | 2019-01-05 09:20 | NUR ---
OT NOTE Pt was seen this A.M. 1:1 for 15 minute OT session. Upon arrival pt was supine in bed. Pt identified by name and and had no complaints at this time. Pt transferred supine to sit EOB with SBA. While sitting EOB pt donned B slippers with SBA. Sit to stand completed from the bed level with Unruly MOORE. Functional mobility was then completed into the bathroom with Unruly MOORE. There she transferred on/off standard commode with CGA for safety. Pt stood sink side while washing her hands with CGA for safety. Functional mobility was then completed back to the EOB where she transferred sit to supine with SBA. There she was left with call light in hand, tray table in place, and bed alarm activated for safety. Continue with rec D/C plan to SNF. SHIRA Prasad/Lizzie
--- NOTE | 2019-01-05 10:15 | NUR ---
PHYSICAL THERAPY Patient presented to therapy in supine with IV infusing and report of no pain or other complaints. Patient was identified by name and on wristband. Patient gives informed consent for treatment. Patient performed supine to sitting at EOB transfer with SBA. Patient sat on EOB with SBA. Patient performed sit to stand from EOB with MIN A X 1 with verbal cues for pushing off the bed with hands. Patient ambulated, while pushing IV pole, for 60' x 2 with one standing restbreak at the end of the 1st 60' distance with CGA X 1. Patient had one LOB while performing gait, WHICH REQUIRED MIN A X 1 TO CORRECT LOB. Patient performed TUG TEST in 24 seconds with no use of UEs to push off chair. Patient performed 30 seconds sit to stand test at 6 Xs sit to stands in 30 seconds without use of UEs. Patient transferred back to supine in bed with SBA. Patient was left in supine in bed with head of bed elevated, call light within reach, and bed alarm activated. Patient was 1:1 with thiS TRANSMITTER SUPERVISOR for 24 minutes total. CHRYSTAL COHEN TRANSMITTER SUPERVISOR
--- NOTE | 2019-01-05 12:58 | NUR ---
Nursing screen received and Occupational Therapy referral received. Thank you. Sharon Baeza OTR/l
--- NOTE | 2019-01-05 14:41 | NUR ---
INFORMED SIGNED CONSENT OBTAINED FOR LEXISCAN STRESS TEST WITH DR MARKS. RESTING EKG SINUS TACHYCARIDA HR 103 BP 148/50. PULSE OX 95% LUNGS CLEAR. PT COMPLETED ONE MINUTE OF A LEXISCAN STRESS TEST WITH PT RECEIVING LEXISCAN 0.4MG IV OVER 10 SECONDS[address] NO ARRHYTHMI[address] OR [address] CHAGNES NOTED. PT C/O CHEST PRESSURE WITH INJECTION. LAST RECOVERY HR OF 113 BP 144/48. PT IN STABLE CONDITION, AWAITING NUCLEAR IMAGES.
[2019-01-05 16:00] VITALS: BP 173/57
--- NOTE | 2019-01-05 16:36 | NUR ---
CALLED , STATED THAT PATIENT CAN BE DISCHARGED AND TO FOLLOW UP IN OFFICE IN 2WEEKS, MADE AWARE.
[2019-01-05] MEDS ORDERED: CIPROFLOXACIN250 MG PO (16:55)
[2019-01-05] MEDS ORDERED: TESSALON PERLE100 MG PO (17:33)
--- NOTE | 2019-01-05 17:38 | NUR ---
CALLED CALLED AND INFORMED THAT PATIENT IS REQUESTING TESSALON PEARLES SCRIPT. DR STATED SHE WILL SEND ON TO HER PHARM.
--- NOTE | 2019-01-05 17:56 | NUR ---
Discharge instructions reviewed with patient/family. Patient receptive and verbalizes understanding. Follow-up care arranged. Written instructions given to patient/family. IV VATH REMOVED. DANIELITO NOBLES
--- NOTE | 2019-01-06 08:15 | NUR ---
PHYSICAL THERAPY CO-SIGN I approve of the Physical Therapy notes written above. Vernell French, PT, DPT
--- NOTE | 2019-01-06 16:20 | NUR ---
OCCUPATIONAL THERAPY CO-SIGN I approve of the Occupational Therapy notes written above. JET YARBROUGH OTR/Lizzie
== END 2019-01-05 17:56 | disposition home health service (06) | DRG 871 ==
LOC: 4E 16:41
PROVIDERS: Student in an Organized Health Care Education/Training Program; ADMIT Internal Medicine
PROC: 4A02XM4 Measurement of Cardiac Total Activity, External Approach (ICD-10-PCS; principal; 2019-01-05)
PROC: 3E073KZ Introduction of Other Diagnostic Substance into Coronary Artery, Percutaneous Approach (ICD-10-PCS; principal; 2019-01-05)
DX: A41.9 Sepsis, unspecified organism (principal); E43 Unspecified severe protein-calorie malnutrition; G93.41 Metabolic encephalopathy; E87.2 Acidosis; N39.0 Urinary tract infection, site not specified; Z68.1 Body mass index [BMI] 19.9 or less, adult; J44.9 Chronic obstructive pulmonary disease, unspecified; M32.9 Systemic lupus erythematosus, unspecified; I25.10 Atherosclerotic heart disease of native coronary artery without angina pectoris; M54.5 Low back pain; G89.29 Other chronic pain; G40.909 Epilepsy, unspecified, not intractable, without status epilepticus; R07.9 Chest pain, unspecified; I10 Essential (primary) hypertension; B96.20 Unspecified Escherichia coli [E. coli] as the cause of diseases classified elsewhere; F17.210 Nicotine dependence, cigarettes, uncomplicated; D53.9 Nutritional anemia, unspecified; R41.0 Disorientation, unspecified; R44.1 Visual hallucinations; E55.9 Vitamin D deficiency, unspecified; M81.0 Age-related osteoporosis without current pathological fracture; Z71.6 Tobacco abuse counseling; Z86.73 Personal history of transient ischemic attack (TIA), and cerebral infarction without residual deficits; Z95.5 Presence of coronary angioplasty implant and graft; Z90.710 Acquired absence of both cervix and uterus; Z90.49 Acquired absence of other specified parts of digestive tract; Z82.49 Family history of ischemic heart disease and other diseases of the circulatory system; Z83.3 Family history of diabetes mellitus; Z88.0 Allergy status to penicillin; Z88.1 Allergy status to other antibiotic agents; Z88.8 Allergy status to other drugs, medicaments and biological substances; Z88.6 Allergy status to analgesic agent; Z88.2 Allergy status to sulfonamides; Z88.5 Allergy status to narcotic agent; Z79.82 Long term (current) use of aspirin; Z79.899 Other long term (current) drug therapy; I25.2 Old myocardial infarction

== ENCOUNTER → 2019-01-13 | Outpatient (CLI) | payer MEDICARE, OTHER ==
[~2019-01-13] MED LIST changes: +CIPROFLOXACIN250 MG PO; +TESSALON PERLE100 MG PO
== END | disposition home or self-care (01) ==
LOC: US 12:29
DX: I65.23 Occlusion and stenosis of bilateral carotid arteries (principal); I25.10 Atherosclerotic heart disease of native coronary artery without angina pectoris; I10 Essential (primary) hypertension; R59.0 Localized enlarged lymph nodes

== ENCOUNTER 2019-02-15 09:50 | Inpatient (IN) | payer MEDICARE, OTHER ==
[2019-02-15] VITALS (7 sets, daily range): BP systolic 123–155; BP diastolic 42–62
[~2019-02-15] VITALS: Ht 154.9 cm; Wt 37.7 kg
[~2019-02-15 09:50] MED LIST changes: +PROAIR HFA8.5 GM INH; -VENTOLIN H0.09 MG/AC INH
[2019-02-15 10:18] LABS: HEMATOCRIT 29.8 % (37.0-47.0); HEMOGLOBIN 9.2 g/dl (12.0-16.0); MEAN CELL VOLUME 103.8 fl (81.0-99.0); MEAN CORPUSCULAR HGB 32.1 pg (27.0-31.0); MEAN CORPUSCULAR HGB CONC 30.9 g/dl (33.0-37.0); PLATELET COUNT AUTOMATED 247 10*3/uL (130-400); RED BLOOD COUNT 2.87 10*6/uL (4.10-5.10); RED CELL DISTRI WIDTH 14.6 % (0-14.5); WHITE BLOOD COUNT 15.5 10*3/uL (4.8-10.8)
[2019-02-15 10:34] LABS: ACT PARTIAL THROMBO TIME 29.2 SECONDS (20.0-32.1); INTERNATIONAL NORM RATIO 0.9 (2.0-3.5)
[2019-02-15 10:39] LABS: ALBUMIN 3.3 gm/dl (3.1-4.5); ALKALINE PHOSPHATASE 78 U/L (45-117); BUN 9 mg/dl (7-24); CHLORIDE 105 mmol/L (98-107); CREATININE 1.08 mg/dL (0.55-1.02); POTASSIUM 4.1 mmol/L (3.5-5.1); SGOT/AST 20 IU/L (3-35); SGPT/ALT 13 U/L (12-78); SODIUM 136 mmol/L (136-145); TOTAL PROTEIN 7.5 gm/dL (6.4-8.2)
[2019-02-15 10:44] LABS: PLATELET SUFFICIENCY NORMAL (NORMAL); POLYCHROMASIA SLIGHT; TOTAL CELLS COUNTED 100 #CELLS
[2019-02-15 10:45] LABS: TROPONIN I < 0.015 ng/ml (<0.045)
[2019-02-15] MEDS ORDERED: NIFEDIPINE ER30 M1 PO (11:53)
[2019-02-15] MEDS ORDERED: RANOLAZINE ER500 MG PO (11:55)
[2019-02-15] MEDS ORDERED: Ipratropium Brom3 ML INH (11:57)
--- NOTE | 2019-02-15 12:30 | NUR ---
A 73, admitted to , under the services of FRANKIE Potter DO with a diagnosis of ANGINA. Chief complaint is CHEST PAIN SHORT OF BREATH. Patient arrived via stretcher from ER. Monitor applied. Initial assessment completed. Vital signs taken and recorded. FRANKIE POTTER DO notified of admission to the unit. Orders received. See assessment for past medical history, medications and allergies. Patient and/or family oriented to unit. [address] visitation policy reviewed. Clothing/patient valuable form completed. JOHN ABEBE
--- NOTE | 2019-02-15 12:45 | NUR ---
PATIENT TAKEN TO 4TH FLOOR BY THIS NURSE. AND BEDSIDE REPORT GIVEN TO SURINDER RAINES. NO CHANGE IN PATIENT STATUS.
[2019-02-15] MEDS ORDERED: VITAMIN D32000 UNIT PO (13:26)
[2019-02-15] MEDS ORDERED: IMDUR SA60 M1 PO (13:29)
[2019-02-15] MEDS ORDERED: NITROSTAT0.4 MG SL (13:31)
[2019-02-15] MEDS ORDERED: ASPIR LOW81 MG PO (13:33)
--- NOTE | 2019-02-15 13:33 | NUR ---
MED REC UPDATED/CORRECTED USING INFORMATION PROVIDED BY THE PATIENT WHICH COINCIDES WITH HER CLAIMS HISTORY.
--- NOTE | 2019-02-15 15:35 | NUR ---
MEDICATED WITH PRN PO TYLENOL FOR C/O PAIN TO LEFT CHEST RADIATING TO LEFT NECK AND BACK. PATIENT STATES PAIN IS CONSTANT, BUT HAS INTERMITTENT PERIODS OF WORSE, SHARP, STABBING PAINS CAUSING HER TO JERK AND GUARD. PATIENT STATES DOES NOT LIKE TO TAKE NARCOTICS FOR PAIN.
--- NOTE | 2019-02-15 15:48 | NUR ---
DR. MARKS NOTIFIED OF CONSULT; ORDERED ECHOCARDIOGRAM FOR TOMORROW MORNING AND HE WILL SEE THE PATIENT TOMORROW.
[2019-02-15 16:06] LABS: BILIRUBIN NEGATIVE (NEGATIVE); BLOOD NEGATIVE (NEGATIVE); CLARITY CLEAR (CLEAR); COLOR YELLOW (YELLOW); GLUCOSE NEGATIVE (NEGATIVE); KETONE NEGATIVE (NEGATIVE); LEUKO ESTERASE NEGATIVE (NEGATIVE); NITRITE NEGATIVE (NEGATIVE); PH 6.5 (5.0-9.0); SPECIFIC GRAVITY <= 1.005 (1.005-1.030); UROBILINOGEN 0.2 E.U./dl (0.2-1.0)
[2019-02-15 16:14] LABS: URINE AMPHETAMINES < 1000 (1000ng/ml); URINE BARBITURATES < 200 (200ng/ml); URINE BENZODIAZEPINES < 200 (200ng/ml); URINE CANNABINOIDS (THC) < 50 (50ng/ml); URINE COCAINE < 300 (300ng/ml); URINE METHADONE < 300 (300ng/ml); URINE OPIATES > 300 (300ng/ml)
[2019-02-15 16:16] LABS: URINE PHENCYCLIDINE < 25 (25ng/ml)
--- NOTE | 2019-02-15 19:30 | NUR ---
IN TO SEE PT AT THIS TIME. PT CO OF LEFT SIDED CHEST PAIN RADIATING TO HER BACK. REQUESTING TYLENOL. PT STATES SHE DOES NOT LIKE TO TAKE NARCTOICS. RESPIRATIONS EASY, NONLABORED. NO OTHER COMPLAINTS AT THIS TIME. WILL CONTINUE TO MONITOR. CALL LIGHT WITHIN REACH.
--- NOTE | 2019-02-15 19:39 | NUR ---
PT CO LEFT SIDED CHEST PAIN RADIATING TO HER BACK. PT STATES SHE JUST WANTS TO TAKE SOME TYLENOL SHE DOES NOT LIKE TAKING NARCOTICS. MEDICATED WITH PRN TYLENOL ORDERED. PAIN RATED 5/10. WILL CHECK EFFECTIVENESS. CALL LIGHT WITHIN REACH.
--- NOTE | 2019-02-15 20:40 | NUR ---
PT STATES TYLENOL WAS "SOMEWHAT EFFECTIVE" AND SHE WOULD NOT LIKE ANYTHING ELSE AT THIS TIME.
[2019-02-16] VITALS: BP 138/54
--- NOTE | 2019-02-16 01:36 | NUR ---
PT CO LEFT CHEST PAIN RADAITING TO HER BACK RATED 6/10. ASKING FOR TYLENOL. MEDICATED WITH PRN TYLENOL ORDERED. WILL CHECK EFFECTIVENESS. CALL LIGHT WITHIN REACH.
--- NOTE | 2019-02-16 02:36 | NUR ---
PT STATES TYLENOL "TOOK THE EDGE OFF"
--- NOTE | 2019-02-16 02:40 | NUR ---
24 HR chart check completed.
[2019-02-16 06:07] LABS: BASO % 0.3 % (0.0-1.0); EOS # 0.1 10*3/uL (0.0-0.4); EOS % 1.2 % (1.0-4.0); HEMATOCRIT 27.1 % (37.0-47.0); HEMOGLOBIN 8.3 g/dl (12.0-16.0); LYMPH # 1.6 10*3/uL (1.3-4.4); MEAN CELL VOLUME 102.7 fl (81.0-99.0); MEAN CORPUSCULAR HGB 31.4 pg (27.0-31.0); MEAN CORPUSCULAR HGB CONC 30.6 g/dl (33.0-37.0); MEAN PLATELET VOLUME 10.1 fl (9.6-12.3); MONO # 1.2 10*3/uL (0.1-1.0); MONO % 11.4 % (3.0-9.0); NEUT # 7.5 10*3/uL (2.3-7.9); NEUT % 71.4 % (47.0-73.0); PLATELET COUNT AUTOMATED 222 10*3/uL (130-400); RED BLOOD COUNT 2.64 10*6/uL (4.10-5.10); RED CELL DISTRI WIDTH 14.6 % (0-14.5); WHITE BLOOD COUNT 10.6 10*3/uL (4.8-10.8)
[2019-02-16 06:22] LABS: BUN 9 mg/dl (7-24); CHLORIDE 111 mmol/L (98-107); CHOLESTEROL 124 mg/dL (<200); CREATININE 0.82 mg/dL (0.55-1.02); POTASSIUM 3.9 mmol/L (3.5-5.1); SODIUM 141 mmol/L (136-145); TRIGLYCERIDES 86 mg/dl (<150); VLDL CHOLESTEROL 17 mg/dL (6-40)
[2019-02-16 06:33] LABS: HDL CHOLESTEROL 63 mg/dl (40-60); LDL CHOLESTEROL 44 mg/dL (9-159); THYROID STIM HORMONE (HS) 0.696 uIU/ml (0.358-4.75)
[2019-02-16 08:00] VITALS: BP 142/64
--- NOTE | 2019-02-16 08:50 | NUR ---
Patient seated in chair with head resting on tray table. Occupational Therapy evaluation explained and offered. Patient reported she did not feel like therapy at this time and that she had chest pain. Nurse informed and went to check on patient and give medication. OTR will recheck at a later time. Sharon Baeza OTr/meenu
[2019-02-16 12:00] VITALS: BP 148/50
--- NOTE | 2019-02-16 15:23 | NUR ---
Spare Hand Carding in to talk to patient. Patient states lives at HOME with ALONE. There are NO steps in the home. Physician: Carlee DUARTE Pharmacy: [facility] Home health services: [facility] Patient's level of ADLs: INDEPENDENT Patient has working utilities: YES DME: [facility] Follow-up physician's appointment after d/c: WILL BE MADE BY HOSPITALIST NURSE DIRECTOR ON DISCHARG Does patient want to access PORTAL?: NO Discharge plan PT LIVES AT HOME ALONE. STATES HE GRAND DAUGHTER HELPS HER WHEN NEEDED. STATES SHE QUALIFIED FOR O2 PREVIOUSLY BUT HER INSURANCE WOULD NOT PAY FOR IT. WILL NEED RETESTED PRIOR TO DISCHARGE TO SEE IF SHE QUALIFIES. WILL CONTINUE TO FOLLOW. WILL HAVE A RIDE HOME. DIAMOND GARCIA
--- NOTE | 2019-02-16 15:49 | NUR ---
MEDICATED WITH PRN TYLENOL.
--- NOTE | 2019-02-16 15:53 | NUR ---
PT INSTRUCTED ON FLUTTER, PT TOLERATED WELL, PT CAN DO ON HER OWN
[2019-02-16 16:00] VITALS: BP 148/53
--- NOTE | 2019-02-16 17:57 | NUR ---
PT COMPLAINING OF CHEST PAIN AND RADIATING NECK/BACK PAIN. SPOKE WITH Rito CORONEL. TAKEN FOR STAT EKG AND TROPONINx1. VITALS ARE FOLLOWED T:97.8, P: 84, BP:127/73. PO:98% ON 1L.
[2019-02-16 20:00] VITALS: BP 126/49
--- NOTE | 2019-02-16 20:26 | NUR ---
SPOKE WITH DR CONKLIN REGARDING PT NIGHT TIME DOSE OF 100MG LOPRESSOR. PT BP 126/50 WITH A PULSE OF 78 AT THIS TIME. STATES TO "GO AHEAD AND GIVE IT".
--- NOTE | 2019-02-16 20:32 | NUR ---
TYLENOL ADMINISTERED FOR PT C/O HEADACHE RATED A 10 ON THE PAIN SCALE. WILL CONTINUE TO MONITOR AND REASSESS. NO OTHER COMPLAINTS AT THIS TIME. CALL LIGHT IN REACH.
--- NOTE | 2019-02-16 21:30 | NUR ---
PT STATES TYLENOL WAS EFFECTIVE IN RELIEVING H/A.
--- NOTE | 2019-02-16 22:42 | NUR ---
24 HOUR CHART CHECK COMPLETE.
[2019-02-17] VITALS: BP 124/50; BP 124/64
--- NOTE | 2019-02-17 01:49 | NUR ---
PT GIVEN TYLENOL 650 MG PO AT THIS TIME FOR C/O PAIN TO LEFT SIDE. WILL MONITOR FOR EFFECTIVENESS. CALL LIGHT IN REACH.
[2019-02-17 07:02] LABS: BASO % 0.3 % (0.0-1.0); EOS # 0.2 10*3/uL (0.0-0.4); EOS % 2.4 % (1.0-4.0); HEMATOCRIT 26.9 % (37.0-47.0); HEMOGLOBIN 8.2 g/dl (12.0-16.0); LYMPH # 1.4 10*3/uL (1.3-4.4); LYMPH % 18.5 % (27.0-41.0); MEAN CELL VOLUME 102.7 fl (81.0-99.0); MEAN CORPUSCULAR HGB 31.3 pg (27.0-31.0); MEAN CORPUSCULAR HGB CONC 30.5 g/dl (33.0-37.0); MEAN PLATELET VOLUME 9.9 fl (9.6-12.3); MONO # 0.8 10*3/uL (0.1-1.0); MONO % 10.3 % (3.0-9.0); NEUT # 5.1 10*3/uL (2.3-7.9); PLATELET COUNT AUTOMATED 242 10*3/uL (130-400); RED BLOOD COUNT 2.62 10*6/uL (4.10-5.10); RED CELL DISTRI WIDTH 14.3 % (0-14.5); WHITE BLOOD COUNT 7.5 10*3/uL (4.8-10.8)
[2019-02-17 07:17] LABS: BUN 10 mg/dl (7-24); CHLORIDE 110 mmol/L (98-107); CREATININE 0.84 mg/dL (0.55-1.02); SODIUM 139 mmol/L (136-145)
[2019-02-17 07:26] LABS: POTASSIUM 4.2 mmol/L (3.5-5.1)
[2019-02-17 07:45] VITALS: BP 130/58
--- NOTE | 2019-02-17 08:19 | NUR ---
PT SITTING UP IN BED WATCHING TV. DENIES PAIN AT THIS TIME. PLEASANT AND COOPERATIVE. ALVINO FLORES SPNRCC
--- NOTE | 2019-02-17 09:41 | NUR ---
PT GIVEN TYLENOL 650MG AT THIS TIME FOR C/O HEADACHE. PT RATES PAIN A 10 ON PAIN SCALE. WILL EVALUATE FOR EFFECTIVENESS. ALVINO FLORES SPJEANCC
--- NOTE | 2019-02-17 10:34 | NUR ---
TYLENOL WAS EFFECTIVE. PT RATES PAIN A 2. ALVINO GROVES
[2019-02-17 12:00] VITALS: BP 133/58
--- NOTE | 2019-02-17 12:06 | NUR ---
PT RESTING IN BED. WAITING FOR LUNCH TO ARRIVE. ALVINO FLORES SPNRCC
--- NOTE | 2019-02-17 12:27 | NUR ---
PT REFUSED BATH. ALVINO FLORES SPNRCC
--- NOTE | 2019-02-17 12:46 | NUR ---
PER PROGRESS NOTE PT WILL LIKELY BE DISCHARGED TOMORROW. INFORMED STEPHANE HOSPITALIST NURSE DIRECTOR THIS AM IN MEETING PT MAY NEED ACCESSED FOR HOME O2. WILL CONTINUE TO FOLLOW.
--- NOTE | 2019-02-17 14:46 | NUR ---
Occupational Therapy evaluation offered to patient this date. Patient refused OT stating that she is independent in mobility without a device and indep in ADLs. She is anxious about lack of food stamps; therefore she does not eat much at home and she doesn;t have money for inhaler medication or oxygen. She reports that she is feeling better but was unsure why doctor did not consult Dr. Ordoñez as he is her "lung doctor" Nurse and pediatric social worker notified of patient's concert. Discharge OT referral d/t patients refusal. Sharon Baeza OTR/L
--- NOTE | 2019-02-17 15:16 | NUR ---
IMMIGRATION PARALEGAL was notified by Ryland Shay in regards to the patients comments about about needs at home. IMMIGRATION PARALEGAL spoke with the patient. Patient stated that she resides in an apartment at [address]. Patient stated that recently she has been sick, however her son assists her with any needs. Patient stated that her son assist her with obtaining groceries and her prescriptions. Patient stated that she was "blowing off steam" when speaking with Ryland Shay and that she is "okay now". Patient stated that she does cook her own food and is independent with ADLs. Patient stated that she is assisted with IADLs when it comes to driving because she does not drive. When he son is not able to take her to appointments, the patient does use [employer]. Patient stated that she does have concerns over mold and mildew growing in her apartment. Patient did stated [facility] and was told to purchase a dehumidifer, however the patient has refused. Patient stated that she had her PCP Dr. Cain write a letter about this concern for her health but she has done nothing with it yet. Patient stated she used to have O2 at home 28/09, but Medicare stopped paying for it in approximately . Patient stated she used to get it through [facility] [place]. -NAILA Garcia
[2019-02-17 16:00] VITALS: BP 142/60
--- NOTE | 2019-02-17 16:24 | NUR ---
MEDICATED WITH 2 TYLENOL FOR COMPLAINTS OF A HEADACHE AND LEFT SIDED NECK PAIN
--- NOTE | 2019-02-17 19:32 | NUR ---
24 HR/ENTIRE chart check completed.
[2019-02-17 20:00] VITALS: BP 126/45
--- NOTE | 2019-02-17 22:46 | NUR ---
PT STATES THAT SHE IS HAVING A HEAD ACHE AND NECK PAIN THAT RATES A 8/10. PRN TYLENOL PO IS GIVEN AT THIS TIME. WILL CONTINUE TO MONITOR THE PATIENT. CALL LIGHT WITHIN REACH
--- NOTE | 2019-02-17 23:29 | NUR ---
PT RE-EVALUATED AT THIS TIME AND SHE STATES SINCE SHE HAS TAKEN HER TYLENOL THAT HER PAIN HAS DECREASED, RATING IT A 4/10. WILL CONTINUE TO MONITOR THE PATIENT. CALL LIGHT WITHIN REACH.
[2019-02-18] VITALS: BP 130/60
--- NOTE | 2019-02-18 03:47 | NUR ---
Patient sleeping. Respirations relaxed and easy. Siderails up . [place] on. ALENA SCOTT
--- NOTE | 2019-02-18 03:49 | NUR ---
24 HR chart check completed.
--- NOTE | 2019-02-18 04:19 | NUR ---
PT STATES THAT SHE IS HAVING ENCK PAIN AND A HEAD ACHE RATING IT A 8/10. SHE IS REQUESTING SOMETHING FOR PAIN. PRN [id number] PO IS GIVEN AT THIS TIME. WILL CONTINUE TO MONITOR THE PATIENT. CALL LIGHT WITHIN REACH.
--- NOTE | 2019-02-18 05:32 | NUR ---
PT IS RE-EVALUATED AT THIS TIME AND STATES THAT SINCE TAKING HER TYLENOL HER PAIN HAS DECREASED RATING IT A 4/10. WILL CONTINUE TO MONITOR THE PATIENT. CALL LIGHT WITHIN REACH
[2019-02-18 08:00] VITALS: BP 128/56
--- NOTE | 2019-02-18 08:00 | NUR ---
Patient resting quietly with no c/o discomfort. Respirations easy and regular. Vital signs stable. No overt distress. REYNA OKEEFE R
[2019-02-18] MEDS ORDERED: MUCINEX1200 M1 PO (09:26)
[2019-02-18] MEDS ORDERED: LEVAQUIN500 M2 PO (09:26)
--- NOTE | 2019-02-18 10:47 | NUR ---
PT ASSESSED FOR HOME OXYGEN. PT DID NOT QUALIFY. PT AT REST SPO2 97% RA, HR 76, B/P 123/56 RR 16 PT AMBULATED SPO2 93-96% RA PT AT REST SPO2 95% RA, HR 84, RR 18, B/P 142/82 RN NOTIFIED, NOTIFIED
--- NOTE | 2019-02-18 11:30 | NUR ---
Discharge instructions reviewed with patient/family. Patient receptive and verbalizes understanding. Follow-up care arranged. Written instructions given to patient/family. REYNA OKEEFE
== END 2019-02-18 11:41 | disposition home or self-care (01) | DRG 682 ==
LOC: ED 09:50 → 4E 11:12 → EDHOLD 11:12 → 4E 11:19
PROVIDERS: Family Medicine; ADMIT Emergency Medicine
DX: N17.0 Acute kidney failure with tubular necrosis (principal); R65.11 Systemic inflammatory response syndrome (SIRS) of non-infectious origin with acute organ dysfunction; J18.9 Pneumonia, unspecified organism; J44.1 Chronic obstructive pulmonary disease with (acute) exacerbation; R09.1 Pleurisy; I25.2 Old myocardial infarction; I25.10 Atherosclerotic heart disease of native coronary artery without angina pectoris; I10 Essential (primary) hypertension; G40.909 Epilepsy, unspecified, not intractable, without status epilepticus; K22.719 Barrett's esophagus with dysplasia, unspecified; K44.9 Diaphragmatic hernia without obstruction or gangrene; D53.9 Nutritional anemia, unspecified; E87.8 Other disorders of electrolyte and fluid balance, not elsewhere classified; M81.0 Age-related osteoporosis without current pathological fracture; F17.200 Nicotine dependence, unspecified, uncomplicated; Z71.6 Tobacco abuse counseling; Z95.5 Presence of coronary angioplasty implant and graft; Z86.73 Personal history of transient ischemic attack (TIA), and cerebral infarction without residual deficits; Z90.710 Acquired absence of both cervix and uterus; Z83.3 Family history of diabetes mellitus; Z82.49 Family history of ischemic heart disease and other diseases of the circulatory system; Z88.6 Allergy status to analgesic agent; Z88.1 Allergy status to other antibiotic agents; Z88.0 Allergy status to penicillin; Z88.8 Allergy status to other drugs, medicaments and biological substances; Z79.82 Long term (current) use of aspirin; Z79.899 Other long term (current) drug therapy

== ENCOUNTER 2019-05-26 14:47 | Inpatient (IN) | payer MEDICARE, OTHER ==
[~2019-05-26] VITALS: Ht 154.9 cm; Wt 38.3 kg
[2019-05-26] VITALS (9 sets, daily range): BP systolic 111–150; BP diastolic 44–92
[~2019-05-26 14:47] MED LIST changes: +ASPIR LOW81 MG PO; +Ipratropium Brom3 ML INH; +MUCINEX1200 M1 PO; +NITROSTAT0.4 MG SL; +RANOLAZINE ER500 MG PO; +VITAMIN D32000 UNIT PO
[2019-05-26 15:45] LABS: HEMATOCRIT 21.7 % (37.0-47.0); MEAN CELL VOLUME 97.3 fl (81.0-99.0); MEAN CORPUSCULAR HGB 29.6 pg (27.0-31.0); MEAN CORPUSCULAR HGB CONC 30.4 g/dl (33.0-37.0); MEAN PLATELET VOLUME 9.2 fl (9.6-12.3); PLATELET COUNT AUTOMATED 311 10*3/uL (130-400); RED BLOOD COUNT 2.23 10*6/uL (4.10-5.10); RED CELL DISTRI WIDTH 16.4 % (0-14.5); WHITE BLOOD COUNT 5.5 10*3/uL (4.8-10.8)
[2019-05-26 15:47] LABS: HEMOGLOBIN 6.6 g/dl (12.0-16.0)
[2019-05-26 15:54] LABS: ACT PARTIAL THROMBO TIME 22.8 SECONDS (20.0-32.1)
[2019-05-26 16:02] LABS: ALBUMIN 3.2 gm/dl (3.1-4.5); ALKALINE PHOSPHATASE 69 U/L (45-117); BUN 19 mg/dl (7-24); CHLORIDE 110 mmol/L (98-107); CREATININE 1.03 mg/dL (0.55-1.02); LIPASE 153 U/L (73-393); POTASSIUM 4.3 mmol/L (3.5-5.1); SGOT/AST 19 IU/L (3-35); SGPT/ALT 13 U/L (12-78); SODIUM 135 mmol/L (136-145); TOTAL PROTEIN 6.6 gm/dL (6.4-8.2)
[2019-05-26 16:10] LABS: TROPONIN I < 0.015 ng/ml (<0.045)
[2019-05-26 16:19] LABS: TOTAL CELLS COUNTED 100 #CELLS
[2019-05-26 16:21] LABS: PLATELET SUFFICIENCY NORMAL (NORMAL)
[2019-05-26 23:31] LABS: HEMATOCRIT 26.8 % (37.0-47.0); HEMOGLOBIN 8.5 g/dl (12.0-16.0)
[2019-05-27] VITALS: BP 142/50
[2019-05-27 06:44] LABS: BASO % 0.7 % (0.0-1.0); EOS # 0.2 10*3/uL (0.0-0.4); EOS % 3.1 % (1.0-4.0); HEMATOCRIT 27.7 % (37.0-47.0); HEMOGLOBIN 8.7 g/dl (12.0-16.0); LYMPH # 2.2 10*3/uL (1.3-4.4); MEAN CORPUSCULAR HGB 28.6 pg (27.0-31.0); MEAN CORPUSCULAR HGB CONC 31.4 g/dl (33.0-37.0); MEAN PLATELET VOLUME 9.5 fl (9.6-12.3); MONO # 0.7 10*3/uL (0.1-1.0); MONO % 12.2 % (3.0-9.0); NEUT # 2.9 10*3/uL (2.3-7.9); NEUT % 47.5 % (47.0-73.0); PLATELET COUNT AUTOMATED 323 10*3/uL (130-400); RED BLOOD COUNT 3.04 10*6/uL (4.10-5.10); RED CELL DISTRI WIDTH 18.8 % (0-14.5); WHITE BLOOD COUNT 6.1 10*3/uL (4.8-10.8)
[2019-05-27 06:46] LABS: MEAN CELL VOLUME 91.1 fl (81.0-99.0)
[2019-05-27 07:05] LABS: ALBUMIN 3.4 gm/dl (3.1-4.5); ALKALINE PHOSPHATASE 73 U/L (45-117); BUN 18 mg/dl (7-24); CHLORIDE 110 mmol/L (98-107); CHOLESTEROL 158 mg/dL (<200); CREATININE 0.89 mg/dL (0.55-1.02); HDL CHOLESTEROL 47 mg/dl (40-60); LDL CHOLESTEROL 65 mg/dL (9-159); POTASSIUM 3.9 mmol/L (3.5-5.1); SGOT/AST 20 IU/L (3-35); SGPT/ALT 13 U/L (12-78); SODIUM 138 mmol/L (136-145); TRIGLYCERIDES 228 mg/dl (<150); VLDL CHOLESTEROL 46 mg/dL (6-40)
[2019-05-27 08:00] VITALS: BP 138/48
[2019-05-27 12:00] VITALS: BP 138/56
[2019-05-27 16:00] VITALS: BP 110/52
[2019-05-27 20:00] VITALS: BP 100/42
[2019-05-28] VITALS: BP 102/46
[2019-05-28 06:21] LABS: BASO # 0.1 10*3/uL (0.0-0.1); BASO % 0.7 % (0.0-1.0); EOS # 0.2 10*3/uL (0.0-0.4); EOS % 3.2 % (1.0-4.0); HEMATOCRIT 25.6 % (37.0-47.0); HEMOGLOBIN 7.9 g/dl (12.0-16.0); LYMPH # 2.4 10*3/uL (1.3-4.4); LYMPH % 31.8 % (27.0-41.0); MEAN CELL VOLUME 92.8 fl (81.0-99.0); MEAN CORPUSCULAR HGB 28.6 pg (27.0-31.0); MEAN CORPUSCULAR HGB CONC 30.9 g/dl (33.0-37.0); MEAN PLATELET VOLUME 9.1 fl (9.6-12.3); MONO # 0.8 10*3/uL (0.1-1.0); MONO % 10.6 % (3.0-9.0); NEUT # 4.1 10*3/uL (2.3-7.9); NEUT % 53.3 % (47.0-73.0); PLATELET COUNT AUTOMATED 283 10*3/uL (130-400); RED BLOOD COUNT 2.76 10*6/uL (4.10-5.10); RED CELL DISTRI WIDTH 18.4 % (0-14.5); WHITE BLOOD COUNT 7.6 10*3/uL (4.8-10.8)
[2019-05-28 06:48] LABS: BUN 20 mg/dl (7-24); CHLORIDE 107 mmol/L (98-107); CREATININE 0.98 mg/dL (0.55-1.02); POTASSIUM 4.3 mmol/L (3.5-5.1); SODIUM 138 mmol/L (136-145)
[2019-05-28 08:00] VITALS: BP 124/50
[2019-05-28 12:00] VITALS: BP 104/46
[2019-05-28 16:00] VITALS: BP 126/64
[2019-05-28 20:00] VITALS: BP 102/42
[2019-05-29] VITALS: BP 123/48
[2019-05-29 06:49] LABS: BASO % 0.5 % (0.0-1.0); EOS # 0.2 10*3/uL (0.0-0.4); EOS % 3.3 % (1.0-4.0); HEMATOCRIT 26.3 % (37.0-47.0); LYMPH # 1.9 10*3/uL (1.3-4.4); LYMPH % 31.3 % (27.0-41.0); MEAN CELL VOLUME 92.6 fl (81.0-99.0); MEAN CORPUSCULAR HGB 28.2 pg (27.0-31.0); MEAN CORPUSCULAR HGB CONC 30.4 g/dl (33.0-37.0); MEAN PLATELET VOLUME 9.7 fl (9.6-12.3); MONO # 0.8 10*3/uL (0.1-1.0); MONO % 12.6 % (3.0-9.0); NEUT # 3.2 10*3/uL (2.3-7.9); NEUT % 51.8 % (47.0-73.0); PLATELET COUNT AUTOMATED 301 10*3/uL (130-400); RED BLOOD COUNT 2.84 10*6/uL (4.10-5.10); RED CELL DISTRI WIDTH 17.7 % (0-14.5); WHITE BLOOD COUNT 6.1 10*3/uL (4.8-10.8)
[2019-05-29 08:00] VITALS: BP 131/64
[2019-05-29 12:00] VITALS: BP 136/70
== END 2019-05-29 13:19 | disposition home or self-care (01) | DRG 377 ==
LOC: ED 14:47 → 4E 16:24 → EDHOLD 16:24 → 4E 16:42
PROVIDERS: Family Medicine; Student in an Organized Health Care Education/Training Program; ADMIT Emergency Medicine
PROC: 30233N1 Transfusion of Nonautologous Red Blood Cells into Peripheral Vein, Percutaneous Approach (ICD-10-PCS; principal; 2019-05-26)
DX: K92.2 Gastrointestinal hemorrhage, unspecified (principal); E43 Unspecified severe protein-calorie malnutrition; E87.1 Hypo-osmolality and hyponatremia; Z68.1 Body mass index [BMI] 19.9 or less, adult; D64.9 Anemia, unspecified; E87.8 Other disorders of electrolyte and fluid balance, not elsewhere classified; K22.70 Barrett's esophagus without dysplasia; E83.41 Hypermagnesemia; J44.9 Chronic obstructive pulmonary disease, unspecified; I25.10 Atherosclerotic heart disease of native coronary artery without angina pectoris; R79.89 Other specified abnormal findings of blood chemistry; G40.909 Epilepsy, unspecified, not intractable, without status epilepticus; K22.719 Barrett's esophagus with dysplasia, unspecified; Z71.6 Tobacco abuse counseling; Z86.73 Personal history of transient ischemic attack (TIA), and cerebral infarction without residual deficits; I25.2 Old myocardial infarction; Z95.5 Presence of coronary angioplasty implant and graft; Z90.710 Acquired absence of both cervix and uterus; Z82.49 Family history of ischemic heart disease and other diseases of the circulatory system; Z83.3 Family history of diabetes mellitus; Z88.0 Allergy status to penicillin; Z88.1 Allergy status to other antibiotic agents; Z88.8 Allergy status to other drugs, medicaments and biological substances; Z79.82 Long term (current) use of aspirin; Z79.899 Other long term (current) drug therapy; Z72.0 Tobacco use

== ENCOUNTER → 2019-06-01 | Outpatient (CLI) | payer MEDICARE, OTHER ==
[2019-06-01 11:57] LABS: HEMATOCRIT 26.3 % (37.0-47.0); HEMOGLOBIN 7.8 g/dl (12.0-16.0); MEAN CELL VOLUME 96.3 fl (81.0-99.0); MEAN CORPUSCULAR HGB 28.6 pg (27.0-31.0); MEAN CORPUSCULAR HGB CONC 29.7 g/dl (33.0-37.0); MEAN PLATELET VOLUME 9.6 fl (9.6-12.3); RED BLOOD COUNT 2.73 10*6/uL (4.10-5.10); RED CELL DISTRI WIDTH 17.2 % (0-14.5); WHITE BLOOD COUNT 6.8 10*3/uL (4.8-10.8)
== END | disposition home or self-care (01) ==
LOC: LAB 11:06
PROVIDERS: Internal Medicine
DX: D64.9 Anemia, unspecified (principal)

== ENCOUNTER 2019-06-26 14:06 | Inpatient (IN) | payer MEDICARE, OTHER ==
[2019-06-26] VITALS (13 sets, daily range): BP systolic 93–149; BP diastolic 38–93
[~2019-06-26] VITALS: Ht 154.9 cm; Wt 36.3 kg
--- NOTE | 2019-06-26 14:56 | NUR ---
Pt voided qs
--- NOTE | 2019-06-26 15:04 | NUR ---
aware of hemglobin and hemtocrit at this time.
[2019-06-26 15:07] LABS: BILIRUBIN 1+ (NEGATIVE); BLOOD NEGATIVE (NEGATIVE); CLARITY CLEAR (CLEAR); COLOR YELLOW (YELLOW); GLUCOSE NEGATIVE (NEGATIVE); KETONE NEGATIVE (NEGATIVE); LEUKO ESTERASE TRACE (NEGATIVE); NITRITE NEGATIVE (NEGATIVE); SPECIFIC GRAVITY 1.025 (1.005-1.030); UROBILINOGEN 0.2 E.U./dl (0.2-1.0)
[2019-06-26 15:08] LABS: BACTERIA TRACE
[2019-06-26 15:28] LABS: MEAN CELL VOLUME 94.9 fl (81.0-99.0); MEAN CORPUSCULAR HGB 27.4 pg (27.0-31.0); MEAN CORPUSCULAR HGB CONC 28.9 g/dl (33.0-37.0); MEAN PLATELET VOLUME 10.9 fl (9.6-12.3); NUCLEATED RED BLOOD CELL 0.1 10*3/uL (0.0-0.0); NUCLEATED RED BLOOD CELL 1.2 % (0.0-0.0); PLATELET COUNT AUTOMATED 217 10*3/uL (130-400); RED BLOOD COUNT 1.57 10*6/uL (4.10-5.10); RED CELL DISTRI WIDTH 16.5 % (0-14.5); WHITE BLOOD COUNT 4.9 10*3/uL (4.8-10.8)
[2019-06-26 15:37] LABS: HEMATOCRIT 14.9 % (37.0-47.0)
[2019-06-26 15:45] LABS: PLATELET SUFFICIENCY NORMAL (NORMAL); TOTAL CELLS COUNTED 100 #CELLS
[2019-06-26 15:46] LABS: OVALOCYTES FEW
[2019-06-26 15:49] LABS: ALBUMIN 3.2 gm/dl (3.1-4.5); ALKALINE PHOSPHATASE 53 U/L (45-117); BUN 17 mg/dl (7-24); CHLORIDE 111 mmol/L (98-107); CREATININE 1.05 mg/dL (0.55-1.02); LIPASE 136 U/L (73-393); POTASSIUM 4.3 mmol/L (3.5-5.1); SGOT/AST 33 IU/L (3-35); SGPT/ALT 19 U/L (12-78); SODIUM 138 mmol/L (136-145); TOTAL PROTEIN 6.1 gm/dL (6.4-8.2)
[2019-06-26 15:54] LABS: ACT PARTIAL THROMBO TIME < 20.0 SECONDS (20.0-32.1)
[2019-06-26 15:56] LABS: TROPONIN I < 0.015 ng/ml (<0.045)
--- NOTE | 2019-06-26 16:28 | NUR ---
aware of pt stating she wants to sign out at this time if family can not come see her at this time.
--- NOTE | 2019-06-26 16:35 | NUR ---
Family in to see pt at this time.
--- NOTE | 2019-06-26 17:38 | NUR ---
A 74, admitted to , under the services of AINSLEY Back DO with a diagnosis of SYMPTOMATIC ANEMIA. Chief complaint is PAIN. Patient arrived via stretcher from ER. Monitor applied. Initial assessment completed. Vital signs taken and recorded. AINSLEY BACK DO notified of admission to the unit. Orders received. See assessment for past medical history, medications and allergies. Patient and/or family oriented to unit. [address] visitation policy reviewed. Clothing/patient valuable form completed. CLAUDIA العراقي
--- NOTE | 2019-06-26 20:00 | NUR ---
ASSUMED CARE FOR THIS PT AT THIS TIME. PT C/O GENERALIZED PAIN. BLOOD TRANSFUSION INITIATED. CALL LIGHT IN REACH.
--- NOTE | 2019-06-26 20:00 | NUR ---
DR. SANTANA NOTIFIED OF PT'S WISHES TO BE DNRCC. OK TO D/C TELEMETRY.
--- NOTE | 2019-06-26 20:45 | NUR ---
PT MEDICATED W/TYLENOL FOR C/O GENERAL PAIN. WILL MONITOR FOR EFFECTIVENESS. CALL LIGHT IN REACH.
--- NOTE | 2019-06-26 20:45 | NUR ---
PTS BLOOD TRANFUSION VERIFIED WITH OLU LOWERY AND STARTED AT THIS TIME.
--- NOTE | 2019-06-26 20:50 | NUR ---
PT UNABLE TO VERIFY MEDS THAT SHE TAKES. WILL VERIFY WITH PHARMACY IN AM.
--- NOTE | 2019-06-26 23:03 | NUR ---
DR. SANTANA NOTIFIED OF PT'S CODEINE ALLERGY AND PT CONTINUED C/O PAIN AFTER TYLENOL WAS GIVEN. T.O. RCVD FOR MORPHINE 2MG IVP EVERY 6 HRS PRN PAIN.
--- NOTE | 2019-06-26 23:50 | NUR ---
PT MEDICATED W/MORPHINE IVP, PT ONLY ACCEPTED 1MG AT THIS TIME. PT C/O PAIN ALL OVER 9/10 W/CHEST DISCOMFORT. NSR W/HR OF 76 ON HEART MONITOR. PT STATES IT FEELS LIKE ITS HER BONES. WILL CONTINUE TO MONITOR.
[2019-06-27] VITALS (11 sets, daily range): BP systolic 94–160; BP diastolic 42–61
--- NOTE | 2019-06-27 01:07 | NUR ---
DR. SANTANA NOTIFIED PT'S MED REC UTD.
[2019-06-27 06:17] LABS: BASO % 0.5 % (0.0-1.0); EOS # 0.1 10*3/uL (0.0-0.4); EOS % 2.1 % (1.0-4.0); HEMATOCRIT 26.7 % (37.0-47.0); LYMPH % 34.5 % (27.0-41.0); MEAN CORPUSCULAR HGB 28.4 pg (27.0-31.0); MEAN CORPUSCULAR HGB CONC 31.8 g/dl (33.0-37.0); MEAN PLATELET VOLUME 9.8 fl (9.6-12.3); MONO # 0.7 10*3/uL (0.1-1.0); MONO % 11.8 % (3.0-9.0); NEUT # 2.9 10*3/uL (2.3-7.9); NEUT % 50.9 % (47.0-73.0); NUCLEATED RED BLOOD CELL 0.3 % (0.0-0.0); RED BLOOD COUNT 2.99 10*6/uL (4.10-5.10); RED CELL DISTRI WIDTH 15.9 % (0-14.5); WHITE BLOOD COUNT 5.7 10*3/uL (4.8-10.8)
[2019-06-27 06:22] LABS: CHLORIDE 113 mmol/L (98-107); POTASSIUM 4.1 mmol/L (3.5-5.1); SODIUM 142 mmol/L (136-145)
[2019-06-27 06:27] LABS: MEAN CELL VOLUME 89.3 fl (81.0-99.0)
[2019-06-27 06:28] LABS: PLATELET COUNT AUTOMATED 139 10*3/uL (130-400)
[2019-06-27 06:29] LABS: ALBUMIN 3.2 gm/dl (3.1-4.5); ALKALINE PHOSPHATASE 57 U/L (45-117); BUN 15 mg/dl (7-24); CREATININE 0.89 mg/dL (0.55-1.02); LDH 147 U/L (84-246); SGOT/AST 22 IU/L (3-35); SGPT/ALT 14 U/L (12-78)
--- NOTE | 2019-06-27 08:50 | NUR ---
PHYSICAL THERAPY Nursing screen received and chart reviewed. PT order received. Will follow. Thank you. Dayna Martins,PT,DPT
--- NOTE | 2019-06-27 09:25 | NUR ---
Synchro Assembler in to talk to patient. Patient states lives at HOME with ALONE WITH FAMILY CHECKING IN ON HER. There are NO steps in the home. Physician: Carlee DUARTE Pharmacy: [facility]: AIDS FROM ALWAYS CARING TOUCH 5 DAYS A WEEK, 2 HR A DAY Patient's level of ADLs: MINIMAL ASSIST Patient has working utilities: YES DME: [facility] Follow-up physician's appointment after d/c: WILL BE MADE BY HOSPITALIST NURSE DIRECTOR ON DISCHARGE Does patient want to access PORTAL?: NO Discharge plan PT LIVES AT HOME ALONE, WITH FAMILY CHECKING ON HER FREQUENTLY. STATES SHE HAS AIDS 5 DAYS A WEEK, 2 HOURS A DAY. DENIES SHE HAS ANY OTHER NEEDS ON DISCHARGE. PLANS TO RETURN HOME WITH AIDS AND FAMILIES HELP. WILL CONTINUE TO FOLLOW. STATES FAMILY WILL TAKE HER HOME.. DIAMOND GARCIA
--- NOTE | 2019-06-27 10:15 | NUR ---
Occupational therapy orders received and chart reviewed. Per discharge planning meeting, patient has a hospice consult/referral pending. Will discharge OT orders at this time. Thank you for the referral. Jeanna Aquino, OTR/L
--- NOTE | 2019-06-27 10:40 | NUR ---
MEDICATED WITH PRN PO TYLENOL FOR HEADACHE.
--- NOTE | 2019-06-27 11:26 | NUR ---
DALE spoke with patient by phone. Patient remains agreeable to Hospice Services. Patient had no preference. Referral sent to [facility].
--- NOTE | 2019-06-27 11:55 | NUR ---
PHYSICAL THERAPY PT order received. Patient awaiting Hospice Consult. Discharge PT orders at this time. Thank you. Dayna Martins,PT,DPT.
[2019-06-27 14:15] LABS: HEMATOCRIT 25.7 % (37.0-47.0); MEAN CELL VOLUME 89.2 fl (81.0-99.0); MEAN CORPUSCULAR HGB 28.8 pg (27.0-31.0); MEAN CORPUSCULAR HGB CONC 32.3 g/dl (33.0-37.0); MEAN PLATELET VOLUME 10.2 fl (9.6-12.3); NUCLEATED RED BLOOD CELL 0.1 10*3/uL (0.0-0.0); NUCLEATED RED BLOOD CELL 1.4 % (0.0-0.0); PLATELET COUNT AUTOMATED 141 10*3/uL (130-400); RED BLOOD COUNT 2.88 10*6/uL (4.10-5.10); RED CELL DISTRI WIDTH 16.7 % (0-14.5); WHITE BLOOD COUNT 6.5 10*3/uL (4.8-10.8)
[2019-06-27 14:53] LABS: TOTAL CELLS COUNTED 100 #CELLS
[2019-06-27 14:54] LABS: OVALOCYTES FEW; PLATELET SUFFICIENCY NORMAL (NORMAL)
--- NOTE | 2019-06-27 16:14 | NUR ---
MEDICATED WITH PRN PO TYLENOL AND IV MORPHINE (1MG OF 2MG PER PATIENT REQUEST) FOR CRAMPING PAIN TO BILATERAL LEGS.
--- NOTE | 2019-06-27 22:43 | NUR ---
PT MEDICATED W/MORPHINE IVP FOR C/O BILATERAL LEG CRAMPS AND BACK PAIN. 12/15. PT RESTING QUIETLY IN BED WATCHING TV. CALL LIGHT IN REACH.
[2019-06-28] VITALS: BP 117/45
--- NOTE | 2019-06-28 04:51 | NUR ---
PT MEDICATED W/1MG MORHPINE IVP FOR C/O BACK/BLE PAIN 10/15.
[2019-06-28 06:12] LABS: BASO % 0.5 % (0.0-1.0); EOS # 0.2 10*3/uL (0.0-0.4); EOS % 3.2 % (1.0-4.0); HEMATOCRIT 25.5 % (37.0-47.0); LYMPH # 1.3 10*3/uL (1.3-4.4); LYMPH % 20.3 % (27.0-41.0); MEAN CELL VOLUME 89.2 fl (81.0-99.0); MEAN CORPUSCULAR HGB 28.7 pg (27.0-31.0); MEAN CORPUSCULAR HGB CONC 32.2 g/dl (33.0-37.0); MEAN PLATELET VOLUME 10.4 fl (9.6-12.3); MONO # 0.9 10*3/uL (0.1-1.0); MONO % 14.2 % (3.0-9.0); NEUT % 61.5 % (47.0-73.0); NUCLEATED RED BLOOD CELL 0.6 % (0.0-0.0); PLATELET COUNT AUTOMATED 148 10*3/uL (130-400); RED BLOOD COUNT 2.86 10*6/uL (4.10-5.10); RED CELL DISTRI WIDTH 16.6 % (0-14.5); WHITE BLOOD COUNT 6.6 10*3/uL (4.8-10.8)
[2019-06-28 06:27] LABS: BUN 15 mg/dl (7-24); CHLORIDE 109 mmol/L (98-107); CREATININE 0.95 mg/dL (0.55-1.02); POTASSIUM 4.2 mmol/L (3.5-5.1); SODIUM 140 mmol/L (136-145)
--- NOTE | 2019-06-28 07:23 | NUR ---
Patient has been accepted to [facility] and is ok to be discharged at noon today. [facility] will be sending a nurse to patients home at 1PM this afternoon. slot manager notified.
--- NOTE | 2019-06-28 07:37 | NUR ---
Dr. Woodall stopped by to ask if [facility] was accepting patient and was everything going to be set up at home. [facility] is accepting patient and will be at patient's house at 1pm. Dr. Celeste notified.
[2019-06-28 08:00] VITALS: BP 149/51
--- NOTE | 2019-06-28 08:10 | NUR ---
PATIENT REFUSED THE PO ROBAXIN ORDERED X 1, STATES JUST WANTS TYLENOL.
--- NOTE | 2019-06-28 08:14 | NUR ---
MEDICATED WITH PRN PO TYLENOL FOR HEAD AND NECK PAIN. Discharge instructions reviewed with patient. Patient receptive and verbalizes understanding. Follow-up care arranged. Written instructions given to patient. SURINDER DEJESUS
--- NOTE | 2019-06-28 09:12 | NUR ---
PT IS FOR DISCHARGE TODAY. [facility] WILL MEET WITH HER AT 1PM AT HOME.
--- NOTE | 2019-06-28 09:14 | NUR ---
PATIENT DISCHARGED TO ED FRONT LOBBY FOR TRANSPORT HOME BY PRIVATE VEHICLE WITH HER FAMILY.
== END 2019-06-28 09:14 | disposition hospice, home (50) | DRG 812 ==
LOC: ED 14:06 → EDHOLD 16:54 → 4E 16:54
PROVIDERS: Emergency Medicine; Student in an Organized Health Care Education/Training Program; ADMIT Internal Medicine
PROC: 30233N1 Transfusion of Nonautologous Red Blood Cells into Peripheral Vein, Percutaneous Approach (ICD-10-PCS; principal; 2019-06-26)
DX: D62 Acute posthemorrhagic anemia (principal); E44.0 Moderate protein-calorie malnutrition; Z68.1 Body mass index [BMI] 19.9 or less, adult; E87.8 Other disorders of electrolyte and fluid balance, not elsewhere classified; E83.41 Hypermagnesemia; G40.909 Epilepsy, unspecified, not intractable, without status epilepticus; J44.9 Chronic obstructive pulmonary disease, unspecified; M81.0 Age-related osteoporosis without current pathological fracture; Z66 Do not resuscitate; Z51.5 Encounter for palliative care; I12.9 Hypertensive chronic kidney disease with stage 1 through stage 4 chronic kidney disease, or unspecified chronic kidney disease; N18.3 Chronic kidney disease, stage 3 (moderate); I25.10 Atherosclerotic heart disease of native coronary artery without angina pectoris; M32.9 Systemic lupus erythematosus, unspecified; Z72.0 Tobacco use; Z71.6 Tobacco abuse counseling; Z86.73 Personal history of transient ischemic attack (TIA), and cerebral infarction without residual deficits; I25.2 Old myocardial infarction; Z90.49 Acquired absence of other specified parts of digestive tract; Z90.710 Acquired absence of both cervix and uterus; Z95.5 Presence of coronary angioplasty implant and graft; Z82.49 Family history of ischemic heart disease and other diseases of the circulatory system; Z83.3 Family history of diabetes mellitus; Z88.0 Allergy status to penicillin; Z88.1 Allergy status to other antibiotic agents; Z88.8 Allergy status to other drugs, medicaments and biological substances; Z88.2 Allergy status to sulfonamides; Z88.5 Allergy status to narcotic agent; Z79.899 Other long term (current) drug therapy

== ENCOUNTER 2019-09-10 17:52 | Emergency (ER) | payer MEDICARE, OTHER ==
[~2019-09-10] VITALS: Ht 170.1 cm; Wt 31.8 kg
[2019-09-10 19:10] LABS: HEMATOCRIT 26.1 % (37.0-47.0); MEAN CELL VOLUME 91.9 fl (81.0-99.0); MEAN CORPUSCULAR HGB 25.4 pg (27.0-31.0); MEAN CORPUSCULAR HGB CONC 27.6 g/dl (33.0-37.0); MEAN PLATELET VOLUME 10.4 fl (9.6-12.3); PLATELET COUNT AUTOMATED 266 10*3/uL (130-400); RED BLOOD COUNT 2.84 10*6/uL (4.10-5.10); RED CELL DISTRI WIDTH 19.8 % (0-14.5)
[2019-09-10 19:11] VITALS: BP 144/52
[2019-09-10 19:14] LABS: WHITE BLOOD COUNT 43.9 10*3/uL (4.8-10.8)
[2019-09-10 19:19] LABS: ACT PARTIAL THROMBO TIME 32.6 SECONDS (20.0-32.1); INTERNATIONAL NORM RATIO 1.2 (2.0-3.5)
[2019-09-10 19:23] LABS: ALBUMIN 2.8 gm/dl (3.1-4.5); ALKALINE PHOSPHATASE 104 U/L (45-117); BUN 15 mg/dl (7-24); CHLORIDE 95 mmol/L (98-107); CREATININE 0.87 mg/dL (0.55-1.02); POTASSIUM 2.9 mmol/L (3.5-5.1); SGOT/AST 29 IU/L (3-35); SGPT/ALT 19 U/L (12-78); SODIUM 136 mmol/L (136-145); TOTAL PROTEIN 6.9 gm/dL (6.4-8.2)
[2019-09-10 19:28] LABS: PLATELET SUFFICIENCY NORMAL (NORMAL); TOTAL CELLS COUNTED 100 #CELLS
== END 2019-09-10 19:50 | disposition home or self-care (01) ==
LOC: ED 17:52
PROVIDERS: Emergency Medicine
DX: H92.03 Otalgia, bilateral (principal); R53.1 Weakness; R79.1 Abnormal coagulation profile; I25.10 Atherosclerotic heart disease of native coronary artery without angina pectoris; J44.9 Chronic obstructive pulmonary disease, unspecified; M81.0 Age-related osteoporosis without current pathological fracture; G40.909 Epilepsy, unspecified, not intractable, without status epilepticus; I25.2 Old myocardial infarction; F17.200 Nicotine dependence, unspecified, uncomplicated; Z51.5 Encounter for palliative care; Z88.0 Allergy status to penicillin; Z88.1 Allergy status to other antibiotic agents; Z88.8 Allergy status to other drugs, medicaments and biological substances; Z88.2 Allergy status to sulfonamides; Z79.899 Other long term (current) drug therapy; Z86.73 Personal history of transient ischemic attack (TIA), and cerebral infarction without residual deficits